=== PATIENT | male | born 1930 | race Caucasian/White ===

== ENCOUNTER 2017-06-05 15:58 | Inpatient (IN) | payer MEDICARE, OTHER ==
[2017-06-05 15:58] VITALS: BMI 30.4
[2017-06-05] MEDS ORDERED: Sodium Chloride 0.9% 1,000 ML IV STA ×3 (16:12→18:33)
--- NOTE | 2017-06-05 16:19 | ED PDOC ---
HPI: Trauma/Fall - HPI Time Seen by Provider: 06/05/17 16:04 Chief Complaint (Nursing): Weakness/Neurological Deficit Chief Complaint (Provider): Right shoulder and rib pain from fall History Per: Patient, EMS, Family History/Exam Limitations: no limitations Onset/Duration Of Symptoms: Days (3-4) Additional Complaint(s): Patient is an 87 y/o male with a past medical history of hypertension, stroke, and hypercholesterolemia brought to the emergency department by EMS for right shoulder and right rib pain associated with a fall. Family members found him on the floor unable to get up for 3-4 days (he was last seen on Tuesday night). Patient reports that he fell when he tried to get water and his foot slipped off the mattress. Denies loss of consciousness, headache, or other complaints. PCP Dr. Tyler Carranza Past Medical History Reviewed: Historical Data, Nursing Documentation, Vital Signs Vital Signs: Last Vital Signs Temp 98.0 F 06/05/17 16:00 Pulse 87 06/05/17 16:00 Resp 18 06/05/17 16:00 BP 116/75 06/05/17 16:00 Pulse Ox 99 06/05/17 16:34 - Medical History PMH: CVA, TIA (1 month ago) Denies: Anxiety, Arthritis, CHF, COPD, HIV, HTN, Hypercholesterolemia, Hypothyroidism, Chronic Kidney Disease, Rheumatoid Arthritis - Family History Family History: States: Unknown Family Hx - Living Arrangements Living Arrangements: Alone - Home Medications Home Medications: Ambulatory Orders Medication Instructions Recorded Multivitamin/Iron/Folic Acid 1 tab PO DAILY 12/02/14 [Centrum Complete Multivit Tab] Aspirin [Ecotrin] 81 mg PO DAILY 12/04/14 Atorvastatin [Lipitor] 20 mg PO HS #0 tab 10/11/15 Clopidogrel [Plavix] 75 mg PO DAILY 06/05/17 amLODIPine [Norvasc] 5 mg PO DAILY 06/05/17 - Allergies Allergies/Adverse Reactions: Allergies Allergy/AdvReac Type Severity Reaction Status Date / Time No Known Allergies Allergy Verified 10/10/15 18:03 Review of Systems ROS Statement: Except As Marked, All Systems Reviewed And Found Negative Musculoskeletal: Positive for: Shoulder Pain (right), Other (rib pain) Neurological: Negative for: Headache, Other (loss of consciousness) Physical Exam - Reviewed Nursing Documentation Reviewed: Yes Vital Signs Reviewed: Yes - Physical Exam Appears: Positive for: Non-toxic, No Acute Distress Head Exam: Positive for: ATRAUMATIC, NORMOCEPHALIC Skin: Positive for: Normal Color, Warm, Dry Eye Exam: Positive for: Normal appearance, EOMI, PERRL ENT: Positive for: Other (Dry mucous membranes) Neck: Positive for: Normal (and nontender), Painless ROM, Supple Cardiovascular/Chest: Positive for: Regular Rate, Rhythm. Negative for: Murmur Respiratory: Positive for: Normal Breath Sounds. Negative for: Accessory Muscle Use, Respiratory Distress Gastrointestinal/Abdominal: Positive for: Soft, Hernia (Reducible ventral hernia ). Negative for: Tenderness Back: Positive for: Other (Midscapular region bilateral ecchymosis). Negative for: Vertebral Tenderness Extremity: Positive for: Normal ROM (right shoulder with no deformities or shortening), Tenderness (right shoulder), Other (bilateral shoulder and elbow eccymosis) Neurologic/Psych: Positive for: Alert, Oriented (x3). Negative for: Motor/ Sensory Deficits Comments: Right sided hip tenderness - Laboratory Results Result Diagrams: 06/05/17 16:40 06/05/17 16:40 - ECG O2 Sat by Pulse Oximetry: 99 (RA) Pulse Ox Interpretation: Normal - Progress Re-evaluation Time: 18:33 Condition: Unchanged - Critical Care Total Time (In Min): 30 Medical Decision Making Medical Decision Making: Time: 16:10 Initial plan: Labs CT Head w/o contrast EKG ED Urine Dipstick X-ray Chest X-ray Shoulders X-ray Elbows Normal Saline 1 L IV Blood Culture Urine Culture Reevaluation Scribe Attestation: Documented by Danni Wallace, acting as a scribe for Gilmar John MD. Provider Scribe Attestation: All medical record entries made by the Scribe were at my direction and personally dictated by me. I have reviewed the chart and agree that the record accurately reflects my personal performance of the history, physical exam, medical decision making, and the department course for this patient. I have also personally directed, reviewed, and agree with the discharge instructions and disposition. Disposition - Clinical Impression Clinical Impression: Syncope, Rhabdomyolysis, Dehydration - Patient ED Disposition Is Patient to be Admitted: Yes - Disposition Disposition Time: 18:34 Condition: FAIR Forms: [employer] ([employer]) - Pt Status Changed To: Hospital Disposition Of: Inpatient - Admit Certification Admit to Inpatient:: After my assessment, the patient will require hospitalization for at least two midnights. This is because of the severity of symptoms shown, intensity of services needed, and/or the medical risk in this patient being treated as an outpatient. - POA Present On Arrival: None
[2017-06-05 16:37] LABS: VENOUS BLOOD GAS BASE EXCESS -5.2 mmol/L (0.0-2.0); VENOUS BLOOD GAS PCO2 46 mmHg (40-60); VENOUS BLOOD PH 7.28 (7.32-7.43)
[2017-06-05 16:50] LABS: BASO % 0.6 % (0.0-2.0); EOS % 0.3 % (0.0-4.0); HEMATOCRIT 53.5 % (35.0-51.0); LYMPH # 0.6 K/uL (1.0-4.3); LYMPH % 7.5 % (20.0-40.0); MEAN CELL VOLUME 93.2 fl (80.0-94.0); MEAN CORPUSCULAR HEMOGLOBIN 30.9 pg (27.0-31.0); MEAN CORPUSCULAR HGB CONC 33.2 g/dL (33.0-37.0); MEAN PLATELET VOLUME 10.5 fl (7.2-11.7); MONO # 0.7 K/uL (0.0-0.8); MONO % 8.4 % (0.0-10.0); NEUT # 7.2 K/uL (1.8-7.0); NEUT % 83.2 % (50.0-75.0); NRBC % 0.5 % (0.0-0.0); PLATELET COUNT 187 K/uL (130-400); RED CELL DISTRIBUTION WIDTH 15.1 % (11.5-14.5); WHITE BLOOD COUNT 8.6 K/uL (4.8-10.8)
[2017-06-05 17:00] LABS: ALB/GLOB RATIO 0.9 (1.0-2.1); BILIRUBIN,TOTAL 2.7 mg/dl (0.2-1.3); CALCIUM 9.9 mg/dL (8.4-10.2); POTASSIUM 5.2 MMOL/L (3.6-5.0); TOTAL PROTEIN 9.4 G/DL (6.3-8.2)
[2017-06-05 17:27] LABS: NEUTROPHIL 84 % (42-75); TOTAL CELLS COUNTED 100
--- NOTE | 2017-06-05 18:45 | CT ---
PROCEDURE: CT HEAD WITHOUT CONTRAST. HISTORY: r/o bleed COMPARISON: Comparison made with prior CT scan of the brain dated 10/11/2015. TECHNIQUE: Axial computed tomography images were obtained through the head/brain without intravenous contrast. Radiation dose: Total exam DLP = 2411.39 mGy-cm. This CT exam was performed using one or more of the following dose reduction techniques: Automated exposure control, adjustment of the mA and/or kV according to patient size, and/or use of iterative reconstruction technique. FINDINGS: HEMORRHAGE: No acute parenchymal, subarachnoid or extra-axial hemorrhage. BRAIN: Re- demonstrated is old left posterior temporoparietal infarct of. No evidence of parenchymal or extra-axial mass or collection. Tiny chronic lacunar-type infarct right caudate head, anterior limb right internal capsule and probably left subinsular region. . Moderate chronic periventricular white matter ischemic changes are again seen extending peripherally into the deep and subcortical white matter both cerebral hemispheres. Moderate -significant generalized volume loss. Mild calcified atherosclerotic plaque changes again seen along the carotid siphons M left vertebral artery. . VENTRICLES: No obstructive hydrocephalus. . Incidental note made of cavum velum interpositum. CALVARIUM: Calvarium is intact. PARANASAL SINUSES: Unremarkable as visualized. No significant inflammatory changes. MASTOID AIR CELLS: Unremarkable as visualized. No inflammatory changes. OTHER FINDINGS: None. IMPRESSION: No acute intracranial hemorrhage. Chronic left posterior temporal parietal infarct. Tiny chronic lacunar-type infarct right caudate head, anterior limb right internal capsule and probably left subinsular region. . Moderate chronic white matter ischemic changes.
--- NOTE | 2017-06-05 18:52 | RAD ---
PROCEDURE: Bilateral shoulders dated 06/05/2017. HISTORY: trauma COMPARISON: No prior study available for comparison TECHNIQUE: AP views of the right and left shoulders performed. Comparison made with radiographs of the chest dated 10/10/2015 which imaged the right shoulder and partially imaged the left shoulder. FINDINGS: No evidence of acute displaced fracture nor dislocation. The osseous structures appear intact. Degenerative changes both acromioclavicular joints right greater than left. There also appears to be some minor degenerative changes of the right and to a lesser degree left glenohumeral joints. Note again made of a small irregular rounded radiopaque density overlying the left medial clavicle. IMPRESSION: DJD as above. No evidence of acute displaced fracture nor dislocation.
--- NOTE | 2017-06-05 19:00 | RAD ---
HISTORY: cough COMPARISON: Comparison made with chest radiograph 10/10/2015 FINDINGS: LUNGS: Mild left basilar atelectasis scarring and/or infiltrate. Small left effusion cannot be excluded. Persistent elevation right hemidiaphragm possibly due to eventration. PLEURA: As above. No pneumothorax apparent. CARDIOVASCULAR: Heart remains enlarged. Aorta is slightly ectatic and uncoiled. OSSEOUS STRUCTURES: No significant abnormalities. VISUALIZED UPPER ABDOMEN: Normal. OTHER FINDINGS: Re- demonstrated is small rounded metallic density which overlies the medial clavicle unchanged from prior study IMPRESSION: Left lower lobe atelectasis scarring and/or infiltrate. Small left effusion not excluded. Persistent elevation right hemidiaphragm possibly due to eventration. Cardiomegaly. Re- demonstrated is a small rounded metallic like density overlying the medial left clavicle.
--- NOTE | 2017-06-05 20:30 | CT ---
EXAM: CT Abdomen and Pelvis Without Intravenous Contrast EXAM DATE/TIME: 06/05/2017 6:47 PM CLINICAL HISTORY: 87 years old, male; Injury or trauma; Fall; Initial encounter; Laceration; Without foreign body; Generalized, abdominal; Injury date: 4 days ago; Injury details: Rt hip SX. HX of CVA. Pt was found lying on the floor 4 days; Prior surgery; Surgery date: 6+ months; Additional info: R/O kidney stone TECHNIQUE: Axial computed tomography images of the abdomen and pelvis without intravenous contrast. All CT scans at this facility use one or more dose reduction techniques, viz.: automated exposure control; ma/kV adjustment per patient size (including targeted exams where dose is matched to indication; i.e. head); or iterative reconstruction technique. Coronal and sagittal reformatted images were created and reviewed. COMPARISON: No relevant prior studies available. FINDINGS: LOWER THORAX: Masslike density in the left lung base posteriorly, oval shaped, measuring 5.8 x 2.7 cm maximally. This has features suggestive of round atelectasis. It is subpleural in location, and there is nearby pleural thickening. There is distortion and convergence of nearby vessels into the lesion. No pneumothorax is seen. ABDOMEN: LIVER: No evidence of liver laceration, allowing for unenhanced technique. GALLBLADDER AND BILE DUCTS: Cholelithiasis. Numerous tiny gallstones are seen. Mild gallbladder dilatation. Subtle infiltration of the fat adjacent to the gallbladder, and question subtle pericholecystic inflammation. No evidence of pericholecystic fluid. PANCREAS: No CT evidence of acute pancreatitis. SPLEEN: No evidence of splenic laceration, allowing for unenhanced technique. ADRENALS: No evidence of adrenal hemorrhage/hematoma. KIDNEYS AND URETERS: Low density lesion in the left kidney, measuring 2.7 cm, most likely a cyst. No evidence of perinephric hemorrhage. No renal stones, hydronephrosis, or hydroureter seen. STOMACH AND BOWEL: Rectum is stool filled and mildly dilated, suggestive of fecal retention/constipation. Extensive colonic diverticulosis, without evidence of acute diverticulitis. Evidence of prior right hemicolectomy. There appears to be an enterocolic anastomosis in the right anterior abdomen. Stomach is mildly dilated. Otherwise, no significant abnormality of the bowel is identified. No evidence of large mesenteric hematoma. No evidence of bowel perforation. APPENDIX: Surgically removed. PELVIS: BLADDER: No acute abnormality of the bladder identified. REPRODUCTIVE: No acute abnormality of the reproductive organs is seen. ABDOMEN and PELVIS: INTRAPERITONEAL SPACE: No evidence of free intraperitoneal air or fluid. RETROPERITONEAL SPACE: No evidence of retroperitoneal hemorrhage. BONES/JOINTS: Arthroplasty device in the right hip.No acute fractures are seen. SOFT TISSUES: Right lateral abdominal wall hernia, containing multiple small bowel loops. No evidence of associated bowel obstruction. No CT findings to suggest hernia incarceration. No evidence of soft tissue hematoma. VASCULATURE: Abdominal aorta and common iliac arteries are ectatic, with the aorta measuring up to 2.8 cm in diameter, without aneurysmal dilatation. Extensive atherosclerotic calcification. No evidence of periaortic hemorrhage. LYMPH NODES: No evidence of diffuse lymphadenopathy. IMPRESSION: - No evidence of significant acute traumatic injury on this unenhanced exam. - Gallstones, mild gallbladder dilatation, and question subtle pericholecystic inflammation. If there is any clinical concern for early acute cholecystitis, consider right upper quadrant ultrasound for further evaluation. - 5.8 cm masslike density in the left lung base. This has features suggestive of round atelectasis. Recommend either short term CT chest followup or further workup, such as with PET/CT, to definitely rule out a mass. - Right lateral abdominal wall hernia, containing multiple small bowel loops. No associated bowel obstruction. - See above for remaining findings.
[2017-06-05] MEDS: Sodium Chloride 0.9% 1,000 ML IV SCH (21:56)
[2017-06-06] MEDS: Sodium Chloride 0.9% 1,000 ML IV SCH ×2 (05:02→05:03)
[2017-06-06 08:23] LABS: BASO % 0.6 % (0.0-2.0); EOS # 0.1 K/uL (0.0-0.7); EOS % 1.5 % (0.0-4.0); HEMATOCRIT 47.1 % (35.0-51.0); LYMPH # 0.7 K/uL (1.0-4.3); LYMPH % 13.1 % (20.0-40.0); MEAN CELL VOLUME 94.7 fl (80.0-94.0); MEAN CORPUSCULAR HEMOGLOBIN 30.5 pg (27.0-31.0); MEAN CORPUSCULAR HGB CONC 32.2 g/dL (33.0-37.0); MEAN PLATELET VOLUME 10.3 fl (7.2-11.7); MONO # 0.6 K/uL (0.0-0.8); MONO % 10.8 % (0.0-10.0); NEUT # 4.2 K/uL (1.8-7.0); NRBC % 0.1 % (0.0-0.0); RED CELL DISTRIBUTION WIDTH 15.4 % (11.5-14.5); WHITE BLOOD COUNT 5.6 K/uL (4.8-10.8)
[2017-06-06 08:51] LABS: ALB/GLOB RATIO 0.8 (1.0-2.1); BILIRUBIN,TOTAL 2.2 mg/dl (0.2-1.3); CALCIUM 8.2 mg/dL (8.4-10.2); MAGNESIUM 2.6 MG/DL (1.6-2.3); PHOSPHOROUS 3.5 mg/dl (2.5-4.5); POTASSIUM 4.5 MMOL/L (3.6-5.0); TOTAL PROTEIN 7.3 G/DL (6.3-8.2)
[2017-06-06] MEDS: Multivitamin With Minerals Tab PO SCH (09:08)
--- NOTE | 2017-06-06 10:55 | CP.PCM.HP ---
History of Present Illness - History of Present Illness History of Present Illness: pt admitted for dehydration, rhabdo after falling to floor and not being able to get up x 2-3 days. cpk, bun, cr, na, k all elevated this am came down w/ ivf denies cp, dyspnea, is a/o to baselinea tpresent. all imaging reviewed Present on Admission - Present on Admission Any Indicators Present on Admission: No Review of Systems - Constitutional Constitutional: As Per HPI - Neurological Neurological: As Per HPI Past Patient History - Past Medical History & Family History Past Medical History?: Yes - Past Social History Smoking Status: Never Smoked - CARDIAC Hx Congestive Heart Failure: No Hx Hypercholesterolemia: Yes Hx Hypertension: Yes - PULMONARY Hx Chronic Obstructive Pulmonary Disease (COPD): No - NEUROLOGICAL HX Cerebrovascular Accident: Yes Hx Transient Ischemic Attacks (TIA): Yes (1 month ago) - HEENT Hx HEENT Problems: No - RENAL Hx Chronic Kidney Disease: No - ENDOCRINE/METABOLIC Hx Hypothyroidism: No - HEMATOLOGICAL/ONCOLOGICAL Hx Human Immunodeficiency Virus (HIV): No - INTEGUMENTARY Hx Dermatological Problems: No - MUSCULOSKELETAL/RHEUMATOLOGICAL Hx Falls: Yes - GASTROINTESTINAL Hx Gastrointestinal Disorders: Yes Other/Comment: Pt had abdominal surgery in the past that resulted in ventral hernia (?) per family - GENITOURINARY/GYNECOLOGICAL Hx Genitourinary Disorders: Yes - PSYCHIATRIC Hx Substance Use: No - SURGICAL HISTORY Hx Surgeries: Yes Hx Joint Replacement: Yes (R THR 2010) Other/Comment: Abdominal surgery. Ventral Hernia repair 1.5 years ago in [employer]. prostate ca removal - ANESTHESIA Hx Anesthesia: Yes Hx Anesthesia Reactions: No Hx Malignant Hyperthermia: No Meds Allergies/Adverse Reactions: Allergies Allergy/AdvReac Type Severity Reaction Status Date / Time No Known Allergies Allergy Verified 10/10/15 18:03 Physical Exam - Constitutional Appears: Well, Non-toxic, No Acute Distress - Head Exam Head Exam: ATRAUMATIC, NORMAL INSPECTION, NORMOCEPHALIC - Eye Exam Eye Exam: EOMI, Normal appearance, PERRL Pupil Exam: NORMAL ACCOMODATION, PERRL - ENT Exam ENT Exam: Mucous Membranes Moist, Normal Exam - Neck Exam Neck exam: Positive for: Normal Inspection - Respiratory Exam Respiratory Exam: Clear to Auscultation Bilateral, NORMAL BREATHING PATTERN - Cardiovascular Exam Cardiovascular Exam: REGULAR RHYTHM, RRR, +S1, +S2 - GI/Abdominal Exam GI & Abdominal Exam: Normal Bowel Sounds, Soft. absent: Tenderness - Extremities Exam Extremities exam: Positive for: full ROM, normal capillary refill, normal inspection, pedal pulses present - Back Exam Back exam: NORMAL INSPECTION - Neurological Exam Neurological exam: Abnormal Gait, Alert, CN II-XII Intact, Oriented x3, Reflexes Normal - Psychiatric Exam Psychiatric exam: Normal Affect, Normal Mood - Skin Skin Exam: Dry, Intact, Normal Color, Warm Results - Vital Signs Recent Vital Signs: Last Vital Signs Temp 96.9 F L 06/06/17 08:58 Pulse 62 06/06/17 09:08 Resp 20 06/06/17 08:58 BP 129/77 06/06/17 09:08 Pulse Ox 98 06/06/17 08:58 - Labs Result Diagrams: 06/06/17 07:50 06/06/17 07:50 Labs: Laboratory Results - last 24 hr 06/06/17 06/06/17 07:50 07:50 WBC 5.6 RBC 4.98 Hgb 15.2 D Hct 47.1 MCV 94.7 H MCH 30.5 MCHC 32.2 L RDW 15.4 H Plt Count 160 MPV 10.3 Neut % (Auto) 74.0 Lymph % (Auto) 13.1 L Ford % (Auto) 10.8 H Eos % (Auto) 1.5 Baso % (Auto) 0.6 Neut # 4.2 Lymph # 0.7 L Ford # 0.6 Eos # 0.1 Baso # 0.0 Sodium 147 Potassium 4.5 Chloride 122 H Carbon Dioxide 14 L Anion Gap 16 BUN 96 H Creatinine 1.5 Est GFR ( Amer) 54 Est GFR (Non-Af Amer) 44 Random Glucose 103 Calcium 8.2 L Phosphorus 3.5 Magnesium 2.6 H Total Bilirubin 2.2 H AST 82 H D ALT 69 Alkaline Phosphatase 48 Total Creatine Kinase 658 H Total Protein 7.3 Albumin 3.2 L D Globulin 4.2 H Albumin/Globulin Ratio 0.8 L Assessment & Plan (1) Dehydration Assessment and Plan: ivf nephro bun/cr improving trend numbers Status: Acute (2) Rhabdomyolysis Assessment and Plan: trend cpk nephro ivf Status: Acute (3) Syncope Assessment and Plan: cardio tele monitoring no further episodes of same. likely nonsyncope but mechanical fall Status: Acute (4) DVT prophylaxis Assessment and Plan: scd and ae hose ambulation Status: Acute (5) Fall Assessment and Plan: pt/ot patricio Status: Acute Decision To Admit - Pt Status Changed To: Hospital Disposition Of: Inpatient - Admit Certification Admit to Inpatient:: After my assessment, the patient will require hospitalization for at least two midnights. This is because of the severity of symptoms shown, intensity of services needed, and/or the medical risk in this patient being treated as an outpatient. - . Bed Request Type: Telemetry Admitting Physician: Tyler Rodgers
--- NOTE | 2017-06-06 11:44 | CP.PCM.CON ---
History of Present Illness - History of Present Illness History of Present Illness: Initial Nephrology Consultation: Assessment: critical Acute Kidney Injury (N17.9) likely due to severe dehydration with pre-renal state Hypernatremia Fall at home, HTN, Hyperlipidemia, TIA Rhabdomyolysis HAGMA now NAGMA combined respi and metabolic acidosis Plan No acute need for renal replacement therapy at this time. Hypertension control with meds as ordered. Patient not on ACEI/ARB due to ÁLVARO Monitor Input/Output, daily weights and renal function with basic metabolic panel will change IVF to D5W with 75 meq bicarb @ 100 ml/hr Dose meds/antibiotics for reduced GFR. Avoid fleets enema/magnesium based laxatives. Avoid nephrotoxins/NSAIDs/ iodinated contrast (unless needed emergently) Glycemic control Further work up/management as per primary team Thanks for allowing me to participate in care of your patient. Will follow patient with you. Please call if any Qs. d/w team Dr Jonny Brown Office: [phone] Chief Complaint; Fall HPI: Pt is a 87 y/o M with hx of hypertension, TIA and hyperlipidemia who had a fall episode of home 3-4 days ago. pt unable to seek help and wasn't able to eat or drink for those days. he was brought to ER for initial eval and found to have severe dehydration with ÁLVARO hence renal consulted he is c/o fall 3-4 days ago and Rt shoulder pain Denies chest pain, palpitation, shortness of breath, leg swelling Denies blood or bubbles in urine Denies OTC/herbal meds or NSAIDs No recent iodinated contrast exposure.. ROS: staff helped in panamanian interpretation Constitutional Symptoms: Denies fever. No chills. No Recent Weight Changes Eyes: denies change in vision, denies watery eyes, denies double vision Ears/Nose/Mouth/Throat: Denies Abnormal Taste. No Bad breath no Bad Taste. Cardiovascular: No chest pain. There is no shortness of breath. No palpitations. Pulmonary: No shortness of breath no cough. Gastrointestinal: denies abdominal pain No nausea. No vomiting. Denies change in bowel habits. Denies Bleeding Genitourinary: No Change in force of strain when urinating. No increase in urinary frequency. No pain while urinating. Denies blood in urine. Neurological: Denies headaches. c/o dizziness.had loss of balance. Denies weakness, denies tingling/numbness Dermatological: No Rash or Bruising or ulcers. Psychiatric: Denies Anxiety. No depression. Denies hallucinations. Rheumatological: c/o joint pain. Denies Joint swelling Endocrine: Denies tiredness/Fatigue denies Heat/Cold Intolerance. All other negative Physical Examination: General Appearance: Comfortable, in no acute respiratory distress, co-operative . overall ill appearing Vitals reviewed and noted as below Head; Atraumatic, normocephalic ENT: no ulcers no thrush. Tongue is midline. Oropharynx: no rash or ulcers. dry oral mucosa/tongue EYES: Pupils are equal, round and reactive to light accommodation. Eye muscles and extraocular movement intact. Sclera is anicteric. Neck; supple no lymphadenopathy, no thyromegaly or bruit Lungs: Normal respiratory rate/effort. Breath sounds bilateral equal and clear Heart: Normal rate. s1s2 normal. No rub or gallop. Extremities: no edema. No varicose veins Neurological: Patient is alert, awake and oriented to person, place and time. No focal deficit. Strength bilateral appropriate and equal Skin: Warm and dry. Normal turgor. No rash. Palpitation: Normal elasticity for age Abdomen: Abdomen is soft. Bowel sounds +. There is no abdominal tenderness, no guarding/rigidity no organomegaly Psych: normal insight and normal affect/mood MSK: no joint tenderness or swelling. Digits and nails normal, no deformity : kidney or bladder not palpable Labs/imaging/EKG reviewed. Past medical history, past surgical history, family history, social history, allergy reviewed and noted as below Family hx: no hx of CKD. Rest non-contributory Past Patient History - Past Medical History & Family History Past Medical History?: Yes - Past Social History Smoking Status: Never Smoked - CARDIAC Hx Congestive Heart Failure: No Hx Hypercholesterolemia: Yes Hx Hypertension: Yes - PULMONARY Hx Chronic Obstructive Pulmonary Disease (COPD): No - NEUROLOGICAL HX Cerebrovascular Accident: Yes Hx Transient Ischemic Attacks (TIA): Yes (1 month ago) - HEENT Hx HEENT Problems: No - RENAL Hx Chronic Kidney Disease: No - ENDOCRINE/METABOLIC Hx Hypothyroidism: No - HEMATOLOGICAL/ONCOLOGICAL Hx Human Immunodeficiency Virus (HIV): No - INTEGUMENTARY Hx Dermatological Problems: No - MUSCULOSKELETAL/RHEUMATOLOGICAL Hx Falls: Yes - GASTROINTESTINAL Hx Gastrointestinal Disorders: Yes Other/Comment: Pt had abdominal surgery in the past that resulted in ventral hernia (?) per family - GENITOURINARY/GYNECOLOGICAL Hx Genitourinary Disorders: Yes - PSYCHIATRIC Hx Substance Use: No - SURGICAL HISTORY Hx Surgeries: Yes Hx Joint Replacement: Yes (R THR 2010) Other/Comment: Abdominal surgery. Ventral Hernia repair 1.5 years ago in [place]. prostate ca removal - ANESTHESIA Hx Anesthesia: Yes Hx Anesthesia Reactions: No Hx Malignant Hyperthermia: No Meds Allergies/Adverse Reactions: Allergies Allergy/AdvReac Type Severity Reaction Status Date / Time No Known Allergies Allergy Verified 10/10/15 18:03 - Medications Medications: Current Medications Acetaminophen (Tylenol 325mg Tab) 650 mg PO Q6 PRN PRN Reason: Pain, Mild (1-3) Amlodipine Besylate (Norvasc) 5 mg PO DAILY [facility] Last Admin: 06/06/17 09:08 Dose: 5 mg Aspirin (Ecotrin) 81 mg PO DAILY [facility] Last Admin: 06/06/17 09:08 Dose: 81 mg Atorvastatin Calcium (Lipitor) 20 mg PO HS [facility] Last Admin: 06/05/17 22:00 Dose: Not Given Clopidogrel Bisulfate (Plavix) 75 mg PO DAILY [facility] Last Admin: 06/06/17 09:08 Dose: 75 mg Enoxaparin Sodium (Lovenox) 40 mg SC DAILY [facility] PRN Reason: Protocol Sodium Bicarbonate 75 meq/ (Dextrose) 1,075 mls @ 100 mls/hr IV .[id number] [facility] Stop: 06/07/17 10:42 Multivitamins/Minerals (Therapeutic-M Tab) 1 tab PO DAILY [facility] Last Admin: 06/06/17 09:08 Dose: 1 tab Results - Vital Signs Recent Vital Signs: Last Vital Signs Temp 96.9 F L 06/06/17 08:58 Pulse 62 06/06/17 09:08 Resp 20 06/06/17 08:58 BP 129/77 06/06/17 09:08 Pulse Ox 98 06/06/17 08:58 - Labs Result Diagrams: 06/06/17 07:50 06/06/17 07:50 Labs: Laboratory Results - last 24 hr 06/06/17 06/06/17 07:50 07:50 WBC 5.6 RBC 4.98 Hgb 15.2 D Hct 47.1 MCV 94.7 H MCH 30.5 MCHC 32.2 L RDW 15.4 H Plt Count 160 MPV 10.3 Neut % (Auto) 74.0 Lymph % (Auto) 13.1 L [place] % (Auto) 10.8 H Eos % (Auto) 1.5 Baso % (Auto) 0.6 Neut # 4.2 Lymph # 0.7 L [place] # 0.6 Eos # 0.1 Baso # 0.0 Sodium 147 Potassium 4.5 Chloride 122 H Carbon Dioxide 14 L Anion Gap 16 BUN 96 H Creatinine 1.5 Est GFR ( Amer) 54 Est GFR (Non-Af Amer) 44 Random Glucose 103 Calcium 8.2 L Phosphorus 3.5 Magnesium 2.6 H Total Bilirubin 2.2 H AST 82 H D ALT 69 Alkaline Phosphatase 48 Total Creatine Kinase 658 H Total Protein 7.3 Albumin 3.2 L D Globulin 4.2 H Albumin/Globulin Ratio 0.8 L
[2017-06-06 11:55] LABS: RBC URINE < 1 /hpf (0-3); URINE BACTERIA MOD (<OCC); URINE BILIRUBIN NEGATIVE (NEGATIVE); URINE BLOOD SMALL (NEGATIVE); URINE COLOR YELLOW (YELLOW); URINE GLUCOSE (UA) NEG (Normal); URINE KETONE NEGATIVE (NEGATIVE); URINE LEUKOCYTE ESTERASE NEG Leu/uL (Negative); URINE PROTEIN NEGATIVE (NEGATIVE); URINE UROBILINOGEN 0.2-1.0 mg/dL (0.2-1.0); WBC URINE 1 /hpf (0-5)
[2017-06-06] MEDS: Sodium Bicarbonate 8.4% 75 MEQ in Dextrose 5% In Water 1,000 ML IV SCH ×2 (12:22→23:47)
--- NOTE | 2017-06-06 13:36 | CP.PCM.CON ---
History of Present Illness - History of Present Illness History of Present Illness: I was asked to evaluate patient by Dr. Rodgers, and Tyler Carranza APN. Patient is a 87 year old male with PMH HTN who presents for evlauation. The patient was found on the floor of his home by a family memeber, and it was estimated that he was down for abot 2 days. He was found to be in atrial flutter. The patient denies previous myocardial infarction. He denies chest pain or syncope. Review of Systems - Constitutional Constitutional: absent: As Per HPI, Anorexia, Chills, Daytime Sleepiness, Excessive Sweating, Fatigue, Fever, Frequent Falls, Headache, Increased Appetite , Lethargy, Malaise, Night Sweats, Snoring, Sleep Apnea, Weight Gain, Weight Loss, Weakness, Other - EENT Eyes: absent: As Per HPI, Blind Spots, Blurred Vision, Change in Vision, Decreased Night Vision, Diplopia, Discharge, Dry Eye, Exophthalmos, Floaters, Irritation, Itchy Eyes, Loss of Peripheral Vision, Pain, Photophobia, Requires Corrective Lenses, Sees Flashes, Spots in Vision, Tunnel Vision, Other Visual Disturbances, Loss of Vision, Other Ears: absent: As Per HPI, Decreased Hearing, Ear Discharge, Ear Pain, Tinnitus, Abnormal Hearing, Disequilibrium, Dizziness, Other Nose/Mouth/Throat: absent: As Per HPI, Epistaxis, Nasal Congestion, Nasal Discharge, Nasal Obstruction, Nasal Trauma, Nose Pain, Post Nasal Drip, Sinus Pain, Sinus Pressure, Bleeding Gums, Change in Voice, Dental Pain, Dry Mouth, Dysphagia, Halitosis, Hoarsness, Lip Swelling, Mouth Lesions, Mouth Pain, Odynophagia, Sore Throat, Throat Swelling, Tongue Swelling, Facial Pain, Neck Pain, Neck Mass, Other - Cardiovascular Cardiovascular: absent: As Per HPI, Acrocyanosis, Chest Pain, Chest Pain at Rest , Chest Pain with Activity, Claudication, Diaphoresis, Dyspnea, Dyspnea on Exertion, Edema, Irregular Heart Rhythm, Pain Radiating to Arm/Neck/Jaw, Leg Edema, Leg Ulcers, Lightheadedness, Orthopnea, Palpitations, Paroxysmal Nocturnal Dyspnea, Pedal Edema, Radiating Pain, Rapid Heart Rate, Slow Heart Rate, Syncope, Other - Respiratory Respiratory: absent: As Per HPI, Cough, Dyspnea, Hemoptysis, Dyspnea on Exertion , Wheezing, Snoring, Stridor, Pain on Inspiration, Chest Congestion, Excessive Mucous Production, Change in Mucous Color, Pain with Coughing, Other - Gastrointestinal Gastrointestinal: absent: As Per HPI, Abdominal Pain, Belching, Bloating, Change in Bowel Habits, Change in Stool Character, Coffee Ground Emesis, Constipation, Cramping, Diarrhea, Dyspepsia, Dysphagia, Early Satiety, Excessive Flatus, Fecal Incontinence, Heartburn, Hematemesis, Hematochezia, Loose Stools, Melena, Nausea, Odynophagia, Temesmus, Vomiting, Other - Musculoskeletal Musculoskeletal: absent: As Per HPI, Abnormal Gait, Arthralgias, Atrophy, Back Pain, Deformity, Joint Swelling, Limited Range of Motion, Loss of Height, Muscle Cramps, Muscle Weakness, Myalgias, Neck Pain, Numbness, Radiating Pain into Limb, Stiffness, Tingling, Other - Integumentary Integumentary: absent: As Per HPI, Acne, Alopecia, Bleeding Lesions, Change in Hair, Change in Nails, Change in Pigmentation, Changing Lesions, Dry Skin, Erythema, Furuncle, Hirsutism, Lesions, New Lesions, Non-Healing Lesions, Photosensitivity, Pruritus, Rash, Skin Pain, Skin Ulcer, Sores, Striae, Swelling , Unusual Bruising, Wounds, Jaundice, Other - Neurological Neurological: absent: As Per HPI, Abnormal Gait, Abnormal Hearing, Abnormal Movements, Abnormal Speech, Behavioral Changes, Burning Sensations, Confusion, Convulsions, Disequilibrium, Dizziness, Numbness, Focal Weakness, Frequent Falls , Headaches, Lack of Coordination, Loss of Vision, Memory Loss, Paresthesias, Radicular Pain, Restless Legs, Sensory Deficit, Syncope, Tingling, Tremor, Vertigo, Weakness, Other Visual Disturbances, Other - Psychiatric Psychiatric: absent: As Per HPI, Abnormal Sleep Pattern, Anhedonia, Anxiety, Auditory Hallucinations, Behavioral Changes, Change in Appetite, Change in Libido, Confusion, Depression, Difficulty Concentrating, Hallucinations, Homicidal Ideation, Hopelessness, Irritability, Memory Loss, Mood Swings, Panic Attacks, Paranoia, Suicidal Ideation, Visual Hallucinations, Tactile Hallucinations, Other - Endocrine Endocrine: absent: As Per HPI, Change in Body Appearance, Change in Libido, Cold Intolorance, Deepening of Voice, Excessive Sweating, Fatigue, Flushing, Heat Intolorance, Increase in Ring/Shoe/Hat Size, Palpitations, Polydipsia, Polyphagia, Polyuria, Other - Hematologic/Lymphatic Hematologic: absent: As Per HPI, Easy Bleeding, Easy Bruising, Lymphadenopathy, Other Past Patient History - Past Medical History & Family History Past Medical History?: Yes - Past Social History Smoking Status: Never Smoked - CARDIAC Hx Congestive Heart Failure: No Hx Hypercholesterolemia: Yes Hx Hypertension: Yes - PULMONARY Hx Chronic Obstructive Pulmonary Disease (COPD): No - NEUROLOGICAL HX Cerebrovascular Accident: Yes Hx Transient Ischemic Attacks (TIA): Yes (1 month ago) - HEENT Hx HEENT Problems: No - RENAL Hx Chronic Kidney Disease: No - ENDOCRINE/METABOLIC Hx Hypothyroidism: No - HEMATOLOGICAL/ONCOLOGICAL Hx Human Immunodeficiency Virus (HIV): No - INTEGUMENTARY Hx Dermatological Problems: No - MUSCULOSKELETAL/RHEUMATOLOGICAL Hx Falls: Yes - GASTROINTESTINAL Hx Gastrointestinal Disorders: Yes Other/Comment: Pt had abdominal surgery in the past that resulted in ventral hernia (?) per family - GENITOURINARY/GYNECOLOGICAL Hx Genitourinary Disorders: Yes - PSYCHIATRIC Hx Substance Use: No - SURGICAL HISTORY Hx Surgeries: Yes Hx Joint Replacement: Yes (R THR 2010) Other/Comment: Abdominal surgery. Ventral Hernia repair 1.5 years ago in [place]. prostate ca removal - ANESTHESIA Hx Anesthesia: Yes Hx Anesthesia Reactions: No Hx Malignant Hyperthermia: No Meds Allergies/Adverse Reactions: Allergies Allergy/AdvReac Type Severity Reaction Status Date / Time No Known Allergies Allergy Verified 10/10/15 18:03 - Medications Medications: Current Medications Acetaminophen (Tylenol 325mg Tab) 650 mg PO Q6 PRN PRN Reason: Pain, Mild (1-3) Amlodipine Besylate (Norvasc) 5 mg PO DAILY [facility] Last Admin: 06/06/17 09:08 Dose: 5 mg Aspirin (Ecotrin) 81 mg PO DAILY [facility] Last Admin: 06/06/17 09:08 Dose: 81 mg Atorvastatin Calcium (Lipitor) 20 mg PO HS [facility] Last Admin: 06/05/17 22:00 Dose: Not Given Clopidogrel Bisulfate (Plavix) 75 mg PO DAILY [facility] Last Admin: 06/06/17 09:08 Dose: 75 mg Enoxaparin Sodium (Lovenox) 40 mg SC DAILY [facility] PRN Reason: Protocol Sodium Bicarbonate 75 meq/ (Dextrose) 1,075 mls @ 100 mls/hr IV .[id number] [facility] Stop: 06/07/17 10:42 Last Admin: 06/06/17 12:22 Dose: 100 mls/hr Multivitamins/Minerals (Therapeutic-M Tab) 1 tab PO DAILY [facility] Last Admin: 06/06/17 09:08 Dose: 1 tab Physical Exam - Constitutional Appears: Non-toxic - Head Exam Head Exam: NORMAL INSPECTION - Eye Exam Eye Exam: Normal appearance - ENT Exam ENT Exam: Mucous Membranes Moist - Neck Exam Neck exam: Positive for: Full Rom - Respiratory Exam Respiratory Exam: NORMAL BREATHING PATTERN - Cardiovascular Exam Cardiovascular Exam: REGULAR RHYTHM - GI/Abdominal Exam GI & Abdominal Exam: Normal Bowel Sounds - Rectal Exam Rectal Exam: Deferred - Extremities Exam Extremities exam: Positive for: pedal edema - Back Exam Back exam: NORMAL INSPECTION - Neurological Exam Neurological exam: Alert, Oriented x3 - Psychiatric Exam Psychiatric exam: Normal Affect - Skin Skin Exam: Normal Color Results - Vital Signs Recent Vital Signs: Last Vital Signs Temp 97.5 F L 06/06/17 12:44 Pulse 61 06/06/17 12:44 Resp 18 06/06/17 12:44 BP 114/71 06/06/17 12:44 Pulse Ox 97 06/06/17 12:44 - Labs Result Diagrams: 06/06/17 07:50 06/06/17 07:50 Labs: Laboratory Results - last 24 hr 06/06/17 06/06/17 06/06/17 07:50 07:50 11:27 WBC 5.6 RBC 4.98 Hgb 15.2 D Hct 47.1 MCV 94.7 H MCH 30.5 MCHC 32.2 L RDW 15.4 H Plt Count 160 MPV 10.3 Neut % (Auto) 74.0 Lymph % (Auto) 13.1 L [place] % (Auto) 10.8 H Eos % (Auto) 1.5 Baso % (Auto) 0.6 Neut # 4.2 Lymph # 0.7 L [place] # 0.6 Eos # 0.1 Baso # 0.0 Sodium 147 Potassium 4.5 Chloride 122 H Carbon Dioxide 14 L Anion Gap 16 BUN 96 H Creatinine 1.5 Est GFR ( Amer) 54 Est GFR (Non-Af Amer) 44 Random Glucose 103 Calcium 8.2 L Phosphorus 3.5 Magnesium 2.6 H Total Bilirubin 2.2 H AST 82 H D ALT 69 Alkaline Phosphatase 48 Total Creatine Kinase 658 H Total Protein 7.3 Albumin 3.2 L D Globulin 4.2 H Albumin/Globulin Ratio 0.8 L Urine Color Urine Clarity Urine pH Ur Specific [place] Urine Protein Urine Glucose (UA) Urine Ketones Urine Blood Urine Nitrate Urine Bilirubin Urine Urobilinogen Ur Leukocyte Esterase Urine RBC (Auto) Urine Microscopic WBC Ur Squamous Epith Cells Urine Bacteria Hyaline Casts Ur Random Creatinine 62.0 Ur Random Sodium 59 06/06/17 11:27 WBC RBC Hgb Hct MCV MCH MCHC RDW Plt Count MPV Neut % (Auto) Lymph % (Auto) [place] % (Auto) Eos % (Auto) Baso % (Auto) Neut # Lymph # [place] # Eos # Baso # Sodium Potassium Chloride Carbon Dioxide Anion Gap BUN Creatinine Est GFR ( Amer) Est GFR (Non-Af Amer) Random Glucose Calcium Phosphorus Magnesium Total Bilirubin AST ALT Alkaline Phosphatase Total Creatine Kinase Total Protein Albumin Globulin Albumin/Globulin Ratio Urine Color Yellow Urine Clarity Clear Urine pH 6.0 Ur Specific [place] 1.017 Urine Protein Negative Urine Glucose (UA) Neg Urine Ketones Negative Urine Blood Small Urine Nitrate Negative Urine Bilirubin Negative Urine Urobilinogen 0.2-1.0 Ur Leukocyte Esterase Neg Urine RBC (Auto) < 1 Urine Microscopic WBC 1 Ur Squamous Epith Cells < 1 Urine Bacteria Mod H Hyaline Casts 0-2 Ur Random Creatinine Ur Random Sodium - EKG Data EKG Interpreted by: Myself - EKG Data EKG Specific Queries Rhythm: Atrial Flutter Assessment & Plan (1) Atrial flutter Assessment and Plan: unclear duration. recommend echocardiogram to evaluate LV function. Patient is at high risk for falls therefore long teem anticoagulation could be difficult. Status: Acute
[2017-06-06] MEDS: Enoxaparin 40 mg Syringe SC SCH (13:37)
[2017-06-07 07:32] LABS: BASO % 0.3 % (0.0-2.0); EOS # 0.1 K/uL (0.0-0.7); EOS % 2.2 % (0.0-4.0); LYMPH # 0.7 K/uL (1.0-4.3); LYMPH % 17.1 % (20.0-40.0); MEAN CELL VOLUME 92.5 fl (80.0-94.0); MEAN CORPUSCULAR HEMOGLOBIN 30.6 pg (27.0-31.0); MEAN CORPUSCULAR HGB CONC 33.1 g/dL (33.0-37.0); MEAN PLATELET VOLUME 10.2 fl (7.2-11.7); MONO # 0.5 K/uL (0.0-0.8); MONO % 11.5 % (0.0-10.0); NEUT # 2.8 K/uL (1.8-7.0); NEUT % 68.9 % (50.0-75.0); NRBC % 0.3 % (0.0-0.0); RED CELL DISTRIBUTION WIDTH 14.8 % (11.5-14.5)
[2017-06-07 07:39] LABS: ALB/GLOB RATIO 0.8 (1.0-2.1); ALKALINE PHOSPHATASE 49 U/L (38-126); ALT/SGPT 64 U/L (21-72); AST/SGOT 52 U/L (17-59); BILIRUBIN,TOTAL 1.6 mg/dl (0.2-1.3); BLOOD UREA NITROGEN 60 mg/dl (9-20); CALCIUM 8.4 mg/dL (8.4-10.2); CARBON DIOXIDE 22 mmol/L (22-30); CHLORIDE 111 mmol/L (98-107); GFR AFRICAN-AMERICAN > 60; GLUCOSE,RANDOM 130 mg/dL (75-110); POTASSIUM 3.9 MMOL/L (3.6-5.0); SODIUM 141 mmol/l (132-148)
--- NOTE | 2017-06-07 07:59 | CP.PCM.PN ---
Subjective - Date & Time of Evaluation Date of Evaluation: 06/07/17 Time of Evaluation: 07:58 - Subjective Subjective: pt doing well, no distress. no f/c, n/v/d for pt/ot eval and patricio placement. bw noted. cpk and bun/cr and lft all trending to normal Objective - Vital Signs/Intake and Output Vital Signs (last 24 hours): Temp Pulse Resp BP Pulse Ox 97.5 F L 61 18 137/80 98 06/07/17 05:00 06/07/17 05:00 06/07/17 05:00 06/07/17 05:00 06/07/17 05:00 Intake and Output: 06/07/17 06/07/17 06:59 18:59 Intake Total 1200 Balance 1200 - Medications Medications: Current Medications Acetaminophen (Tylenol 325mg Tab) 650 mg PO Q6 PRN PRN Reason: Pain, Mild (1-3) Last Admin: 06/06/17 21:25 Dose: 650 mg Amlodipine Besylate (Norvasc) 5 mg PO DAILY [facility] Last Admin: 06/06/17 09:08 Dose: 5 mg Aspirin (Ecotrin) 81 mg PO DAILY [facility] Last Admin: 06/06/17 09:08 Dose: 81 mg Atorvastatin Calcium (Lipitor) 20 mg PO HS [facility] Last Admin: 06/06/17 23:10 Dose: 20 mg Clopidogrel Bisulfate (Plavix) 75 mg PO DAILY [facility] Last Admin: 06/06/17 09:08 Dose: 75 mg Enoxaparin Sodium (Lovenox) 40 mg SC DAILY [facility] PRN Reason: Protocol Last Admin: 06/06/17 13:37 Dose: 40 mg Sodium Bicarbonate 75 meq/ (Dextrose) 1,075 mls @ 100 mls/hr IV .[id number] [facility] Stop: 06/07/17 10:42 Last Admin: 06/06/17 23:47 Dose: 100 mls/hr Multivitamins/Minerals (Therapeutic-M Tab) 1 tab PO DAILY [facility] Last Admin: 06/06/17 09:08 Dose: 1 tab - Labs Labs: 06/07/17 06:50 06/07/17 06:50 - Constitutional Appears: Well, Non-toxic, No Acute Distress - Head Exam Head Exam: ATRAUMATIC, NORMAL INSPECTION, NORMOCEPHALIC - Eye Exam Eye Exam: EOMI, Normal appearance, PERRL Pupil Exam: NORMAL ACCOMODATION, PERRL - ENT Exam ENT Exam: Mucous Membranes Moist, Normal Exam - Neck Exam Neck Exam: Full ROM, Normal Inspection. absent: Lymphadenopathy - Respiratory Exam Respiratory Exam: Clear to Ausculation Bilateral, NORMAL BREATHING PATTERN - Cardiovascular Exam Cardiovascular Exam: REGULAR RHYTHM, RRR, +S1, +S2. absent: Murmur - GI/Abdominal Exam GI & Abdominal Exam: Soft, Normal Bowel Sounds. absent: Tenderness - Extremities Exam Extremities Exam: Full ROM, Normal Capillary Refill, Normal Inspection. absent : Joint Swelling, Pedal Edema - Back Exam Back Exam: NORMAL INSPECTION - Neurological Exam Neurological Exam: Alert, Awake, CN II-XII Intact, Normal Gait, Oriented x3 - Psychiatric Exam Psychiatric exam: Normal Affect, Normal Mood - Skin Skin Exam: Dry, Intact, Normal Color, Warm Assessment and Plan (1) Dehydration Status: Acute (2) Rhabdomyolysis Status: Acute (3) Syncope Status: Acute (4) DVT prophylaxis Status: Acute (5) Fall Status: Acute - Assessment and Plan (Free Text) Assessment: (1) Dehydration Assessment and Plan: ivf nephro bun/cr improving trend numbers Status: Acute (2) Rhabdomyolysis Assessment and Plan: trend cpk nephro ivf Status: Acute (3) Syncope Assessment and Plan: cardio tele monitoring no further episodes of same. likely nonsyncope but mechanical fall Status: Acute (4) DVT prophylaxis Assessment and Plan: scd and ae hose ambulation Status: Acute (5) Fall Assessment and Plan: pt/ot patricio Status: Acute
[2017-06-07] MEDS: Multivitamin With Minerals Tab PO SCH (08:42)
[2017-06-07] MEDS: Enoxaparin 40 mg Syringe SC SCH (08:44)
[2017-06-07] MEDS: Sodium Bicarbonate 8.4% 75 MEQ in Dextrose 5% In Water 1,000 ML IV SCH (14:43)
--- NOTE | 2017-06-07 15:19 | CP.PCM.PN ---
Subjective - Date & Time of Evaluation Date of Evaluation: 06/07/17 Time of Evaluation: 15:19 - Subjective Subjective: RENAL FOLLOW UP NOTE Objective - Vital Signs/Intake and Output Vital Signs (last 24 hours): Temp Pulse Resp BP Pulse Ox 98.2 F 64 18 98/56 L 97 06/07/17 12:05 06/07/17 12:05 06/07/17 12:05 06/07/17 12:05 06/07/17 12:05 Intake and Output: 06/07/17 06/07/17 06:59 18:59 Intake Total 1200 Balance 1200 - Medications Medications: Current Medications Acetaminophen (Tylenol 325mg Tab) 650 mg PO Q6 PRN PRN Reason: Pain, Mild (1-3) Last Admin: 06/06/17 21:25 Dose: 650 mg Amlodipine Besylate (Norvasc) 5 mg PO DAILY [facility] Last Admin: 06/07/17 08:42 Dose: 5 mg Aspirin (Ecotrin) 81 mg PO DAILY [facility] Last Admin: 06/07/17 08:42 Dose: 81 mg Atorvastatin Calcium (Lipitor) 20 mg PO HS [facility] Last Admin: 06/06/17 23:10 Dose: 20 mg Clopidogrel Bisulfate (Plavix) 75 mg PO DAILY [facility] Last Admin: 06/07/17 08:42 Dose: 75 mg Enoxaparin Sodium (Lovenox) 40 mg SC DAILY [facility] PRN Reason: Protocol Last Admin: 06/07/17 08:44 Dose: 40 mg Ceftriaxone Sodium 1 gm/ (Sodium Chloride) 100 mls @ 100 mls/hr IVPB DAILY [facility] Last Admin: 06/07/17 11:59 Dose: 100 mls/hr Multivitamins/Minerals (Therapeutic-M Tab) 1 tab PO DAILY [facility] Last Admin: 06/07/17 08:42 Dose: 1 tab - Labs Labs: 06/07/17 06:50 06/07/17 06:50 - Constitutional Appears: Non-toxic, No Acute Distress - Head Exam Head Exam: NORMAL INSPECTION - Eye Exam Eye Exam: Normal appearance - ENT Exam ENT Exam: Mucous Membranes Moist - Respiratory Exam Respiratory Exam: NORMAL BREATHING PATTERN - Cardiovascular Exam Cardiovascular Exam: +S1, +S2 - GI/Abdominal Exam GI & Abdominal Exam: Soft - Extremities Exam Extremities Exam: Normal Inspection - Neurological Exam Neurological Exam: Alert, Awake, Oriented x3 - Psychiatric Exam Psychiatric exam: Normal Affect - Skin Skin Exam: Dry Assessment and Plan - Assessment and Plan (Free Text) Plan: ÁLVARO/hypernatremia/fall.Metabolic acidosis/rhabdomyolysis prerenal sec to volume depletion lytes reviewed continue fluids monitor I&Os and urine output
[2017-06-07] MEDS ORDERED: Sodium Bicarbonate 8.4% 75 MEQ in Dextrose 5% In Water 1,000 ML IV SCH (18:09)
[2017-06-08 06:28] LABS: EOS # 0.1 K/uL (0.0-0.7); EOS % 2.3 % (0.0-4.0); HEMATOCRIT 42.9 % (35.0-51.0); LYMPH # 0.7 K/uL (1.0-4.3); LYMPH % 18.7 % (20.0-40.0); MEAN CELL VOLUME 91.7 fl (80.0-94.0); MEAN CORPUSCULAR HEMOGLOBIN 30.5 pg (27.0-31.0); MEAN CORPUSCULAR HGB CONC 33.3 g/dL (33.0-37.0); MEAN PLATELET VOLUME 10.3 fl (7.2-11.7); MONO # 0.5 K/uL (0.0-0.8); MONO % 11.9 % (0.0-10.0); NEUT # 2.5 K/uL (1.8-7.0); NEUT % 66.1 % (50.0-75.0); NRBC % 0.2 % (0.0-0.0); RED CELL DISTRIBUTION WIDTH 14.3 % (11.5-14.5); WHITE BLOOD COUNT 3.8 K/uL (4.8-10.8)
[2017-06-08 06:34] LABS: ALB/GLOB RATIO 0.8 (1.0-2.1); ALKALINE PHOSPHATASE 60 U/L (38-126); ALT/SGPT 56 U/L (21-72); AST/SGOT 37 U/L (17-59); BILIRUBIN,TOTAL 1.1 mg/dl (0.2-1.3); BLOOD UREA NITROGEN 38 mg/dl (9-20); CALCIUM 8.5 mg/dL (8.4-10.2); CARBON DIOXIDE 25 mmol/L (22-30); CHLORIDE 107 mmol/L (98-107); GFR AFRICAN-AMERICAN > 60; GLUCOSE,RANDOM 129 mg/dL (75-110); POTASSIUM 3.8 MMOL/L (3.6-5.0); SODIUM 140 mmol/l (132-148); TOTAL PROTEIN 6.8 G/DL (6.3-8.2)
--- NOTE | 2017-06-08 08:22 | CP.PCM.PN ---
Subjective - Date & Time of Evaluation Date of Evaluation: 06/08/17 Time of Evaluation: 08:22 - Subjective Subjective: doing well, no complaints. for patricio bw noted and cpk wnl Objective - Vital Signs/Intake and Output Vital Signs (last 24 hours): Temp Pulse Resp BP Pulse Ox 97.0 F L 61 18 132/74 96 06/08/17 05:30 06/08/17 05:30 06/08/17 05:30 06/08/17 05:30 06/08/17 05:30 - Medications Medications: Current Medications Acetaminophen (Tylenol 325mg Tab) 650 mg PO Q6 PRN PRN Reason: Pain, Mild (1-3) Last Admin: 06/07/17 21:52 Dose: 650 mg Amlodipine Besylate (Norvasc) 5 mg PO DAILY [facility] Last Admin: 06/07/17 08:42 Dose: 5 mg Aspirin (Ecotrin) 81 mg PO DAILY [facility] Last Admin: 06/07/17 08:42 Dose: 81 mg Atorvastatin Calcium (Lipitor) 20 mg PO HS [facility] Last Admin: 06/07/17 21:53 Dose: 20 mg Clopidogrel Bisulfate (Plavix) 75 mg PO DAILY [facility] Last Admin: 06/07/17 08:42 Dose: 75 mg Enoxaparin Sodium (Lovenox) 40 mg SC DAILY [facility] PRN Reason: Protocol Last Admin: 06/07/17 08:44 Dose: 40 mg Ceftriaxone Sodium 1 gm/ (Sodium Chloride) 100 mls @ 100 mls/hr IVPB DAILY [facility] Last Admin: 06/07/17 11:59 Dose: 100 mls/hr Sodium Bicarbonate 75 meq/ (Dextrose) 1,075 mls @ 100 mls/hr IV .[id number] [facility] Stop: 06/08/17 18:09 Last Admin: 06/08/17 00:32 Dose: 100 mls/hr Multivitamins/Minerals (Therapeutic-M Tab) 1 tab PO DAILY [facility] Last Admin: 06/07/17 08:42 Dose: 1 tab - Labs Labs: 06/08/17 05:00 06/08/17 05:00 - Constitutional Appears: Well, Non-toxic, No Acute Distress - Head Exam Head Exam: ATRAUMATIC, NORMAL INSPECTION, NORMOCEPHALIC - Eye Exam Eye Exam: EOMI, Normal appearance, PERRL Pupil Exam: NORMAL ACCOMODATION, PERRL - ENT Exam ENT Exam: Mucous Membranes Moist, Normal Exam - Neck Exam Neck Exam: Full ROM, Normal Inspection. absent: Lymphadenopathy - Respiratory Exam Respiratory Exam: Clear to Ausculation Bilateral, NORMAL BREATHING PATTERN - Cardiovascular Exam Cardiovascular Exam: REGULAR RHYTHM, RRR, +S1, +S2. absent: Murmur - GI/Abdominal Exam GI & Abdominal Exam: Soft, Normal Bowel Sounds. absent: Tenderness - Extremities Exam Extremities Exam: Full ROM, Normal Capillary Refill, Normal Inspection. absent : Joint Swelling, Pedal Edema - Back Exam Back Exam: NORMAL INSPECTION - Neurological Exam Neurological Exam: Alert, Awake, CN II-XII Intact, Normal Gait, Oriented x3 - Psychiatric Exam Psychiatric exam: Normal Affect, Normal Mood - Skin Skin Exam: Dry, Intact, Normal Color, Warm Assessment and Plan (1) Dehydration Status: Acute (2) Rhabdomyolysis Status: Acute (3) Syncope Status: Acute (4) DVT prophylaxis Status: Acute (5) Fall Status: Acute - Assessment and Plan (Free Text) Assessment: (1) Dehydration Assessment and Plan: ivf nephro bun/cr improving trend numbers Status: Acute (2) Rhabdomyolysis Assessment and Plan: trend cpk nephro ivf Status: Acute (3) Syncope Assessment and Plan: cardio tele monitoring no further episodes of same. likely nonsyncope but mechanical fall Status: Acute (4) DVT prophylaxis Assessment and Plan: scd and ae hose ambulation Status: Acute (5) Fall Assessment and Plan: pt/ot patricio Status: Acute ?? dc to patricio today
--- NOTE | 2017-06-08 08:23 | CP.PCM.PN ---
Subjective - Date & Time of Evaluation Date of Evaluation: 06/07/17 Time of Evaluation: 10:00 - Subjective Subjective: patient has no chest pain or dyspnea Objective - Vital Signs/Intake and Output Vital Signs (last 24 hours): Temp Pulse Resp BP Pulse Ox 97.0 F L 61 18 132/74 96 06/08/17 05:30 06/08/17 05:30 06/08/17 05:30 06/08/17 05:30 06/08/17 05:30 - Medications Medications: Current Medications Acetaminophen (Tylenol 325mg Tab) 650 mg PO Q6 PRN PRN Reason: Pain, Mild (1-3) Last Admin: 06/07/17 21:52 Dose: 650 mg Amlodipine Besylate (Norvasc) 5 mg PO DAILY [facility] Last Admin: 06/07/17 08:42 Dose: 5 mg Aspirin (Ecotrin) 81 mg PO DAILY [facility] Last Admin: 06/07/17 08:42 Dose: 81 mg Atorvastatin Calcium (Lipitor) 20 mg PO HS [facility] Last Admin: 06/07/17 21:53 Dose: 20 mg Clopidogrel Bisulfate (Plavix) 75 mg PO DAILY [facility] Last Admin: 06/07/17 08:42 Dose: 75 mg Enoxaparin Sodium (Lovenox) 40 mg SC DAILY [facility] PRN Reason: Protocol Last Admin: 06/07/17 08:44 Dose: 40 mg Ceftriaxone Sodium 1 gm/ (Sodium Chloride) 100 mls @ 100 mls/hr IVPB DAILY [facility] Last Admin: 06/07/17 11:59 Dose: 100 mls/hr Sodium Bicarbonate 75 meq/ (Dextrose) 1,075 mls @ 100 mls/hr IV .[id number] [facility] Stop: 06/08/17 18:09 Last Admin: 06/08/17 00:32 Dose: 100 mls/hr Multivitamins/Minerals (Therapeutic-M Tab) 1 tab PO DAILY [facility] Last Admin: 06/07/17 08:42 Dose: 1 tab - Labs Labs: 06/08/17 05:00 06/08/17 05:00 - Constitutional Appears: Non-toxic - Head Exam Head Exam: NORMAL INSPECTION - Eye Exam Eye Exam: Normal appearance - ENT Exam ENT Exam: Mucous Membranes Moist - Neck Exam Neck Exam: Full ROM - Respiratory Exam Respiratory Exam: NORMAL BREATHING PATTERN - Cardiovascular Exam Cardiovascular Exam: REGULAR RHYTHM - GI/Abdominal Exam GI & Abdominal Exam: Normal Bowel Sounds - Rectal Exam Rectal Exam: Deferred - Extremities Exam Extremities Exam: absent: Pedal Edema - Neurological Exam Neurological Exam: Alert, Oriented x3 - Psychiatric Exam Psychiatric exam: Normal Mood - Skin Skin Exam: Warm Assessment and Plan (1) Atrial flutter Assessment & Plan: controlled ventricular rate. Will review echocardiogram. would not consider cardioversion or ablation at this time as patient would have to be anticoagulated. he lives alone and was found on the floor for more than 2 days therefore he would be at significant risk of bleeding. Status: Acute
[2017-06-08] MEDS: Enoxaparin 40 mg Syringe SC SCH (08:39)
[2017-06-08 08:40] VITALS: O2SAT 97
[2017-06-08] MEDS: Multivitamin With Minerals Tab PO SCH (08:43)
--- NOTE | 2017-06-08 11:15 | CP.PCM.PN ---
Subjective - Date & Time of Evaluation Date of Evaluation: 06/08/17 Time of Evaluation: 11:13 - Subjective Subjective: Patient sitting up in bed Arelis conscious Patient appeared to be eating well No complaining reported Objective - Vital Signs/Intake and Output Vital Signs (last 24 hours): Temp Pulse Resp BP Pulse Ox 97.9 F 71 18 144/83 97 06/08/17 09:00 06/08/17 09:00 06/08/17 09:00 06/08/17 09:00 06/08/17 09:00 - Medications Medications: Current Medications Acetaminophen (Tylenol 325mg Tab) 650 mg PO Q6 PRN PRN Reason: Pain, Mild (1-3) Last Admin: 06/07/17 21:52 Dose: 650 mg Amlodipine Besylate (Norvasc) 5 mg PO DAILY [facility] Last Admin: 06/08/17 08:42 Dose: 5 mg Aspirin (Ecotrin) 81 mg PO DAILY [facility] Last Admin: 06/08/17 08:39 Dose: 81 mg Atorvastatin Calcium (Lipitor) 20 mg PO HS [facility] Last Admin: 06/07/17 21:53 Dose: 20 mg Clopidogrel Bisulfate (Plavix) 75 mg PO DAILY [facility] Last Admin: 06/08/17 08:43 Dose: 75 mg Enoxaparin Sodium (Lovenox) 40 mg SC DAILY [facility] PRN Reason: Protocol Last Admin: 06/08/17 08:39 Dose: 40 mg Ceftriaxone Sodium 1 gm/ (Sodium Chloride) 100 mls @ 100 mls/hr IVPB DAILY [facility] Last Admin: 06/08/17 08:44 Dose: 100 mls/hr Sodium Bicarbonate 75 meq/ (Dextrose) 1,075 mls @ 100 mls/hr IV .[id number] [facility] Stop: 06/08/17 18:09 Last Admin: 06/08/17 00:32 Dose: 100 mls/hr Multivitamins/Minerals (Therapeutic-M Tab) 1 tab PO DAILY [facility] Last Admin: 06/08/17 08:43 Dose: 1 tab - Labs Labs: 06/08/17 05:00 06/08/17 05:00 - Constitutional Appears: No Acute Distress - ENT Exam ENT Exam: Mucous Membranes Moist - Cardiovascular Exam Cardiovascular Exam: absent: JVD, Rubs - Extremities Exam Extremities Exam: absent: Calf Tenderness - Back Exam Back Exam: absent: CVA tenderness (L), CVA tenderness (R) - Neurological Exam Neurological Exam: Alert Assessment and Plan - Assessment and Plan (Free Text) Assessment: Patient appeared to be recovering from acute kidney injury BUN/creatinine coming down electrolyte improving. ÁLVARO/hypernatremia/fall.Metabolic acidosis/rhabdomyolysis prerenal sec to volume depletion lytes reviewed continue fluids
--- NOTE | 2017-06-08 11:42 | CARD ---
APPROVED REPORT EXAM: Two-dimensional and M-mode echocardiogram with Doppler and color Doppler. Other Information Quality : GoodRhythm : Atrial Flutter INDICATION Abnormal EKG/Arrhythmia 2D DIMENSIONS IVSd1.42 (0.7-1.1cm)LVDd4.54 (3.9-5.9cm) LVOT Diameter2.81 (1.8-2.4cm)PWd0.83 (0.7-1.1cm) IVSs1.44 (0.8-1.2cm)LVDs3.96 (2.5-4.0cm) FS (%) 12.9 %PWs1.20 (0.8-1.2cm) M-Mode DIMENSIONS Left Atrium (MM)3.81 (2.5-4.0cm)IVSd1.34 (0.7-1.1cm) Aortic Root4.22 (2.2-3.7cm)LVDd5.91 (4.0-5.6cm) Aortic Cusp Exc.1.88 (1.5-2.0cm)PWd0.97 (0.7-1.1cm) IVSs1.47 cmFS (%) 17 % LVDs4.88 (2.0-3.8cm)PWs0.88 cm Mitral Valve MV E Qwvxfbxh93.0cm/sMV DECEL [id number] A Pndejdlb42.2cm/s MV LSM88ivR/A ratio1.5MVA (PHT)3.59cm2 TDI E/Lateral E'0.0E/Medial E'0.0 Pulmonary Valve PV Peak Uqzzpfaj107.5cm/s LEFT VENTRICLE The left ventricle is normal size. There is normal left ventricular wall thickness. The left ventricular function is normal. The left ventricular ejection fraction is 60% There is normal LV segmental wall motion. Transmitral Doppler flow pattern is Grade II-pseudonormal filling dynamics. No left ventricle thrombus noted on this study. There is no ventricular septal defect visualized. There is no left ventricular aneurysm. There is no mass noted in the left ventricle. RIGHT VENTRICLE The right ventricle is normal size. There is normal right ventricular wall thickness. The right ventricular systolic function is normal. ATRIA The left atrium size is normal. The right atrium size is normal. The interatrial septum is intact with no evidence for an atrial septal defect. AORTIC VALVE The aortic valve is moderately sclerotic. No aortic regurgitation is present. There is no aortic valvular stenosis. There is no aortic valvular vegetation. MITRAL VALVE The mitral valve is normal in structure and function. There is no evidence of mitral valve prolapse. There is no mitral valve stenosis. There is no mitral valve regurgitation noted. TRICUSPID VALVE The tricuspid valve is normal in structure and function. There is no tricuspid valve regurgitation noted. There is no tricuspid valve prolapse or vegetation. There is no tricuspid valve stenosis. PULMONIC VALVE The pulmonary valve is normal in structure and function. There is no pulmonic valvular regurgitation. There is no pulmonic valvular stenosis. GREAT VESSELS The aortic root is normal in size. The ascending aorta is normal in size. The IVC is normal in size and collapses >50% with inspiration. PERICARDIAL EFFUSION The pericardium appears normal. There is no pleural effusion. <Conclusion> Normal LV Function Aortic Valve Sclerosis
[2017-06-08 12:27] VITALS: RESP 20
--- NOTE | 2017-06-08 13:11 | CP.PCM.DIS ---
Provider - Provider Date of Admission: 06/05/17 18:32 Attending physician: yTler Rodgers MD Time Spent in preparation of Discharge (in minutes): 15 Diagnosis - Discharge Diagnosis (1) Dehydration Status: Acute (2) Rhabdomyolysis Status: Acute (3) Syncope Status: Acute (4) DVT prophylaxis Status: Acute (5) Fall Status: Acute Hospital Course - Lab Results Lab Results: Micro Results 06/05/17 18:40 Urine Urine Culture - Preliminary Gram Negative [place] 06/06/17 08:49 Urine,Clean Catch Urine Culture - Preliminary Gram Negative [place] Most Recent Lab Values WBC 3.8 K/uL (4.8-10.8) L 06/08/17 05:00 RBC 4.67 Mil/uL (4.40-5.90) 06/08/17 05:00 Hgb 14.3 g/dL (12.0-18.0) 06/08/17 05:00 Hct 42.9 % (35.0-51.0) 06/08/17 05:00 MCV 91.7 fl (80.0-94.0) 06/08/17 05:00 MCH 30.5 pg (27.0-31.0) 06/08/17 05:00 MCHC 33.3 g/dL (33.0-37.0) 06/08/17 05:00 RDW 14.3 % (11.5-14.5) 06/08/17 05:00 Plt Count 115 K/uL (130-400) L 06/08/17 05:00 MPV 10.3 fl (7.2-11.7) 06/08/17 05:00 Neut % (Auto) 66.1 % (50.0-75.0) 06/08/17 05:00 Lymph % (Auto) 18.7 % (20.0-40.0) L 06/08/17 05:00 [place] % (Auto) 11.9 % (0.0-10.0) H 06/08/17 05:00 Eos % (Auto) 2.3 % (0.0-4.0) 06/08/17 05:00 Baso % (Auto) 1.0 % (0.0-2.0) 06/08/17 05:00 Neut # 2.5 K/uL (1.8-7.0) 06/08/17 05:00 Lymph # 0.7 K/uL (1.0-4.3) L 06/08/17 05:00 [place] # 0.5 K/uL (0.0-0.8) 06/08/17 05:00 Eos # 0.1 K/uL (0.0-0.7) 06/08/17 05:00 Baso # 0.0 K/uL (0.0-0.2) 06/08/17 05:00 Neutrophils % (Manual) 84 % (42-75) H 06/05/17 16:40 Lymphocytes % (Manual) 8 % (20-50) L 06/05/17 16:40 Monocytes % (Manual) 8 % (0-10) 06/05/17 16:40 Platelet Estimate Normal (NORMAL) 06/05/17 16:40 Anisocytosis (manual) Slight 06/05/17 16:40 Ovalocytes Slight 06/05/17 16:40 pO2 23 mm/Hg (30-55) L 06/05/17 16:30 VBG pH 7.28 (7.32-7.43) L 06/05/17 16:30 VBG pCO2 46 mmHg (40-60) 06/05/17 16:30 VBG HCO3 19.1 mmol/L 06/05/17 16:30 VBG Total CO2 23.0 mmol/L (22-28) 06/05/17 16:30 VBG O2 Sat (Calc) 36.1 % (40-65) L 06/05/17 16:30 VBG Base Excess -5.2 mmol/L (0.0-2.0) L 06/05/17 16:30 VBG Potassium 5.2 mmol/L (3.6-5.2) 06/05/17 16:30 Sodium 148.0 mmol/L (132-148) 06/05/17 16:30 Chloride 112.0 mmol/L (98-107) H 06/05/17 16:30 Glucose 117 mg/dL (75-110) H 06/05/17 16:30 Lactate 1.8 mmol/L (0.7-2.1) 06/05/17 16:30 FiO2 21.0 % 06/05/17 16:30 Sodium 140 mmol/l (132-148) 06/08/17 05:00 Potassium 3.8 MMOL/L (3.6-5.0) 06/08/17 05:00 Chloride 107 mmol/L (98-107) 06/08/17 05:00 Carbon Dioxide 25 mmol/L (22-30) 06/08/17 05:00 Anion Gap 11 (10-20) 06/08/17 05:00 BUN 38 mg/dl (9-20) H 06/08/17 05:00 Creatinine 1.2 mg/dL (0.8-1.5) 06/08/17 05:00 Est GFR ( Amer) > 60 06/08/17 05:00 Est GFR (Non-Af Amer) 57 06/08/17 05:00 POC Glucose (mg/dL) 103 mg/dL (65-110) 06/05/17 16:26 Random Glucose 129 mg/dL (75-110) H 06/08/17 05:00 Calcium 8.5 mg/dL (8.4-10.2) 06/08/17 05:00 Phosphorus 3.5 mg/dl (2.5-4.5) 06/06/17 07:50 Magnesium 2.6 MG/DL (1.6-2.3) H 06/06/17 07:50 Total Bilirubin 1.1 mg/dl (0.2-1.3) 06/08/17 05:00 AST 37 U/L (17-59) 06/08/17 05:00 ALT 56 U/L (21-72) 06/08/17 05:00 Alkaline Phosphatase 60 U/L (38-126) 06/08/17 05:00 Total Creatine Kinase 82 U/L (55-170) 06/08/17 05:00 Total Protein 6.8 G/DL (6.3-8.2) 06/08/17 05:00 Albumin 3.1 g/dL (3.5-5.0) L 06/08/17 05:00 Globulin 3.8 gm/dL (2.2-3.9) 06/08/17 05:00 Albumin/Globulin Ratio 0.8 (1.0-2.1) L 06/08/17 05:00 Venous Blood Potassium 5.2 mmol/L (3.6-5.2) 06/05/17 16:30 Urine Color Yellow (YELLOW) 06/06/17 11:27 Urine Clarity Clear (Clear) 06/06/17 11:27 Urine pH 6.0 (5.0-8.0) 06/06/17 11:27 Ur Specific [place] 1.017 (1.003-1.030) 06/06/17 11:27 Urine Protein Negative mg/dL (NEGATIVE) 06/06/17 11:27 Urine Glucose (UA) Neg mg/dL (Normal) 06/06/17 11:27 Urine Ketones Negative mg/dL (NEGATIVE) 06/06/17 11:27 Urine Blood Small (NEGATIVE) 06/06/17 11:27 Urine Nitrate Negative (NEGATIVE) 06/06/17 11:27 Urine Bilirubin Negative (NEGATIVE) 06/06/17 11:27 Urine Urobilinogen 0.2-1.0 mg/dL (0.2-1.0) 06/06/17 11:27 Ur Leukocyte Esterase Neg [place]/uL (Negative) 06/06/17 11:27 Urine RBC (Auto) < 1 /hpf (0-3) 06/06/17 11:27 Urine Microscopic WBC 1 /hpf (0-5) 06/06/17 11:27 Ur Squamous Epith Cells < 1 /hpf (0-5) 06/06/17 11:27 Urine Bacteria Mod (<OCC) H 06/06/17 11:27 Hyaline Casts 0-2 /hpf (0-2) 06/06/17 11:27 Ur Random Creatinine 62.0 mg/dL 06/06/17 11:27 Ur Random Sodium 59 mmol/L 06/06/17 11:27 Discharge Exam - Head Exam Head Exam: NORMAL INSPECTION Discharge Plan - Follow Up Plan Condition: FAIR Disposition: HOME/ ROUTINE Additional Instructions: dc to patricio, meds per med rec, monitor cmp/cpk. rted prn, final dx-fall, rhabdo, dehydration
[2017-06-08 15:51] VITALS: BP 129/72; PULSE 62; TEMP 98.3
== END 2017-06-08 19:10 | DRG 683 ==
LOC: H.ER 15:58 → H.ERHOLD 18:32 → H.TEL 20:45
PROVIDERS: ADMIT Family Medicine; ATTEND Family Medicine
DX: N17.9 Acute kidney failure, unspecified (principal); E87.0 Hyperosmolality and hypernatremia; E87.4 Mixed disorder of acid-base balance; M62.82 Rhabdomyolysis; I48.92 Unspecified atrial flutter; E78.00 Pure hypercholesterolemia, unspecified; E86.0 Dehydration; E78.5 Hyperlipidemia, unspecified; I10 Essential (primary) hypertension; Z86.73 Personal history of transient ischemic attack (TIA), and cerebral infarction without residual deficits; R55 Syncope and collapse

== ENCOUNTER 2017-06-12 18:35 | Inpatient (IN) | payer MEDICARE ==
[2017-06-12 18:36] VITALS: BMI 30.4
--- NOTE | 2017-06-12 18:50 | ED PDOC ---
HPI: Abdomen Time Seen by Provider: 06/12/17 18:39 Chief Complaint (Nursing): Abdominal Pain Chief Complaint (Provider): Syncopal Episode and Vomiting History Per: Patient History/Exam Limitations: no limitations Onset/Duration Of Symptoms: Hrs Outside of [place] travel?: No Associated Symptoms: Vomiting Additional Complaint(s): Jake Jeter, an 87 year old female, is brought into the ED by the EMS from [facility] for an episode of syncope associated with coffee ground vomitus and right sided arm pain. History is limited due to patient's inability to properly communicate information hence information gathered from care home papers. As per care home papers the patients last episode of vomiting was at 1730. shelter papers also state that the syncopal episode occurred while the patient was sitting in a chair and lasted for a few seconds. In ED patient is pointing to epigastrium complaining of pain. PMD: Maryan Gomez Of Note: Patient is currently taking the following medications: Aspirin, Lipitor , Lovenox for DVT prophylaxis Past Medical History Reviewed: Historical Data, Nursing Documentation, Vital Signs Vital Signs: Last Vital Signs Temp 98.2 F 06/14/17 08:00 Pulse 58 L 06/14/17 10:00 Resp 16 06/14/17 10:00 BP 99/46 L 06/14/17 10:00 Pulse Ox 100 06/14/17 10:00 - Medical History PMH: CVA, HTN, Hypercholesterolemia, TIA (1 month ago) Denies: Anxiety, Arthritis, CHF, COPD, HIV, Hypothyroidism, Chronic Kidney Disease, Rheumatoid Arthritis - Surgical History Surgical History: No Surg Hx - Family History Family History: States: Unknown Family Hx - Home Medications Home Medications: Ambulatory Orders Medication Instructions Recorded Multivitamin/Iron/Folic Acid 1 tab PO DAILY 12/02/14 [Centrum Complete Multivit Tab] Aspirin [Ecotrin] 81 mg PO DAILY 12/04/14 Atorvastatin [Lipitor] 20 mg PO HS #0 tab 10/11/15 Clopidogrel [Plavix] 75 mg PO DAILY 06/05/17 amLODIPine [Norvasc] 5 mg PO DAILY 06/05/17 Acetaminophen [Tylenol 325mg tab] 650 mg PO Q6 PRN tab 06/08/17 Enoxaparin [Lovenox] 40 mg SC DAILY [facility] 06/08/17 - Allergies Allergies/Adverse Reactions: Allergies Allergy/AdvReac Type Severity Reaction Status Date / Time No Known Allergies Allergy Verified 10/10/15 18:03 Review of Systems ROS Statement: Except As Marked, All Systems Reviewed And Found Negative Cardiovascular: Positive for: Chest Pain (pointing to epigastrium) Gastrointestinal: Positive for: Vomiting (Coffee grounds) Neurological: Positive for: Other (Syncopal episode) Physical Exam - Reviewed Nursing Documentation Reviewed: Yes Vital Signs Reviewed: Yes - Physical Exam Appears: Positive for: Non-toxic, No Acute Distress Head Exam: Positive for: ATRAUMATIC, NORMAL INSPECTION, NORMOCEPHALIC Skin: Positive for: Normal Color, Warm, Dry. Negative for: Rash Eye Exam: Positive for: Normal appearance, EOMI, PERRL. Negative for: Nystagmus ENT: Positive for: Normal ENT Inspection. Negative for: Nasal Congestion, Tonsillar Exudate Neck: Positive for: Normal, Painless ROM, Supple Cardiovascular/Chest: Positive for: Regular Rate, Rhythm, Chest Non Tender. Negative for: Tachycardia Respiratory: Positive for: Normal Breath Sounds. Negative for: Rales, Rhonchi, Wheezing, Respiratory Distress Gastrointestinal/Abdominal: Positive for: Normal Exam, Bowel Sounds, Soft. Negative for: Tenderness, Mass, Guarding, Rebound Back: Positive for: Normal Inspection. Negative for: L CVA Tenderness, R CVA Tenderness Rectal: Positive for: Black Stool Extremity: Positive for: Normal ROM. Negative for: Tenderness, Deformity, Swelling Neurologic/Psych: Positive for: Alert, Oriented - Laboratory Results Result Diagrams: 06/14/17 04:20 06/14/17 04:20 - ECG O2 Sat by Pulse Oximetry: 100 (RA) Pulse Ox Interpretation: Normal Medical Decision Making Medical Decision Makin Initial Impression: 87 y/o male presenting with vomiting, right sided arm pain and syncopal episode Initial Plan: * ABO/RH Type * Type and Screen * ABD& Pelv IV contrast * EKG-ED * CMP * CPK * Lipase * Troponin * Udip * CBC * PTT * Prothrombin time * CXR * NS 1000mls IV 125mls/hr * Reevaluation Scribe Attestation Documented by Marion Alonzo acting as a scribe for Ángela Loaiza MD. Provider Attestation All medical record entries made by the Scribe were at my direction and personally dictated by me. I have reviewed the chart and agree that the record accurately reflects my personal performance of the history, physical exam, medical decision making, and the department course for this patient. I have also personally directed, reviewed, and agree with the discharge instructions and disposition. Disposition - Clinical Impression Clinical Impression: GIB (gastrointestinal bleeding), Anemia - Patient ED Disposition Is Patient to be Admitted: Transfer of Care - Disposition Disposition Time: 19:00 Condition: GUARDED Patient Signed Over To: Hill Rodriguez Handoff Comments: Pending labs and imaging.
[2017-06-12] MEDS ORDERED: Sodium Chloride 0.9% 1,000 ML IV STA (18:52)
--- NOTE | 2017-06-12 19:10 | ED PDOC ---
- Laboratory Results Result Diagrams: 06/12/17 20:25 06/12/17 20:25 - ECG O2 Sat by Pulse Oximetry: 100 (RA) Pulse Ox Interpretation: Normal Medical Decision Making Medical Decision Making: Patient signed out to provider at [address] Loaiza pending labs. Any new updates will be documented under the ED OBS section. Scribe Attestation Documented by Marion Alonzo acting as a scribe for Hill Rodriguez MD. Provider Attestation All medical record entries made by the Scribe were at my direction and personally dictated by me. I have reviewed the chart and agree that the record accurately reflects my personal performance of the history, physical exam, medical decision making, and the department course for this patient. I have also personally directed, reviewed, and agree with the discharge instructions and disposition. Disposition - Clinical Impression Clinical Impression: GIB (gastrointestinal bleeding), Anemia - POA Present On Arrival: None - Disposition Disposition: Admitted as In-Patient Disposition Time: 19:00 Condition: CRITICAL ED OBSERVATION Date of observation admission: 06/12/17 Time of observation admission: 19:00 - Observation admission statement Patient is being placed in observation because:: Pending ED work up. - Progress Note Progress Note: 06/12/17 20:22 Patient is resting comfortably, pending labs. 06/12/17 21:37 Patient has significant bleeding, spoke with who reccomends PPI drip, blood transfusion and 2 units of PRBC. Will place central line. CT ordered with PO contrast as ordered by . 06/12/17 23:12 Pt.remains with stable vitals. Central line placed (See procedure note). 2 units PRBC. Sending patient to CT and then to ICU. Central Line Placement - Central Line Placement Indication: Emergent IV Access Central Line Placement: Right: Internal Jugular The Area Was Thoroughly Prepared With: Betadine Area Was Locally Anesthetized With: Lidocaine 1% Procedure: Triple Lumen, Placed Using Standard Seldinger Technique, Catheter Was Sewn Into Place, Sterile Dressing Placed Over Line, Procedure Tolerated Well
[2017-06-12] MEDS ORDERED: Sterile Water 10 ML IV ONE ×2 (19:36→21:27)
[2017-06-12 20:41] LABS: ALB/GLOB RATIO 0.9 (1.0-2.1); BILIRUBIN,TOTAL 0.7 mg/dl (0.2-1.3); CALCIUM 8.6 mg/dL (8.4-10.2); TOTAL PROTEIN 6.1 G/DL (6.3-8.2)
[2017-06-12 20:42] LABS: BASO # 0.1 K/uL (0.0-0.2); BASO % 0.3 % (0.0-2.0); EOS # 0.1 K/uL (0.0-0.7); EOS % 0.3 % (0.0-4.0); HEMATOCRIT 21.2 % (35.0-51.0); LYMPH # 1.8 K/uL (1.0-4.3); MEAN CELL VOLUME 93.5 fl (80.0-94.0); MEAN CORPUSCULAR HEMOGLOBIN 31.5 pg (27.0-31.0); MEAN CORPUSCULAR HGB CONC 33.7 g/dL (33.0-37.0); MEAN PLATELET VOLUME 11.1 fl (7.2-11.7); MONO # 1.4 K/uL (0.0-0.8); MONO % 7.1 % (0.0-10.0); NEUT # 16.3 K/uL (1.8-7.0); NEUT % 83.3 % (50.0-75.0); NRBC % 0.4 % (0.0-0.0); PLATELET COUNT 175 K/uL (130-400); WHITE BLOOD COUNT 19.5 K/uL (4.8-10.8)
[2017-06-12 20:53] LABS: TROPONIN I 0.04 ng/mL (0.00-0.120)
[2017-06-12 20:58] LABS: PARTIAL THROMBOPLASTIN TIME 21.6 Seconds (25.6-37.1)
[2017-06-12] MEDS ORDERED: Iohexol 240 (50 ml) PO STA (21:22)
[2017-06-12] MEDS ORDERED: Pantoprazole 40 MG in Sodium Chloride 0.9% 100 ML IVPB STA (21:25)
[2017-06-12] MEDS ORDERED: Iohexol 240 (50 ml) ONE (21:29)
[2017-06-12] MEDS ORDERED: Pantoprazole 40 MG in Sodium Chloride 0.9% 100 ML IVPB ONE (21:30)
--- NOTE | 2017-06-12 21:41 | CP.PCM.CON ---
History of Present Illness - History of Present Illness History of Present Illness: CC: Hematemesis, GIB (Most information gathered from chart and ER staff as patient cannot provide much history) HPI: This is an 87 y/o male with MHx significant for ?A fib, CVA in the past, and HLD who comes in from [facility] with syncope followed by episodes of coffee ground emesis. Syncopal episode occurred while patient was seated, and lasted for a few seconds. Last episode emesis was 1730. Patient is not able to offer any further information. ROS: limited because patient unable to provide much information MHx: A fib, CVA in past, HLD SHx: none Allergies: NKDA Medications: As per med rec Family Hx: Reviewed in chart, and no relevant findings from previous admissions Social Hx: Currently in [facility], no tobacco, no EtOH Surrogate Dec Maker: Son Past Patient History - Past Medical History & Family History Past Medical History?: Yes - Past Social History Smoking Status: Never Smoked - CARDIAC Hx Congestive Heart Failure: No Hx Hypercholesterolemia: Yes Hx Hypertension: Yes - PULMONARY Hx Chronic Obstructive Pulmonary Disease (COPD): No - NEUROLOGICAL Hx Transient Ischemic Attacks (TIA): Yes (1 month ago) - HEENT Hx HEENT Problems: No - RENAL Hx Chronic Kidney Disease: No - ENDOCRINE/METABOLIC Hx Hypothyroidism: No - HEMATOLOGICAL/ONCOLOGICAL Hx Human Immunodeficiency Virus (HIV): No - INTEGUMENTARY Hx Dermatological Problems: No - MUSCULOSKELETAL/RHEUMATOLOGICAL Hx Arthritis: No Hx Rheumatoid Arthritis: No - GASTROINTESTINAL Hx Gastrointestinal Disorders: Yes Other/Comment: Pt had abdominal surgery in the past that resulted in ventral hernia (?) per family - GENITOURINARY/GYNECOLOGICAL Hx Genitourinary Disorders: Yes - PSYCHIATRIC Hx Anxiety: No Hx Substance Use: No - SURGICAL HISTORY Hx Surgeries: Yes Hx Joint Replacement: Yes (R THR 2010) Other/Comment: Abdominal surgery. Ventral Hernia repair 1.5 years ago in [place]. prostate ca removal - ANESTHESIA Hx Anesthesia: Yes Hx Anesthesia Reactions: No Hx Malignant Hyperthermia: No Meds Allergies/Adverse Reactions: Allergies Allergy/AdvReac Type Severity Reaction Status Date / Time No Known Allergies Allergy Verified 10/10/15 18:03 - Medications Medications: Current Medications Sodium Chloride (Sodium Chloride 0.9%) 1,000 mls @ 125 mls/hr IV .Q8H STA Stop: 06/13/17 02:51 Last Admin: 06/12/17 20:33 Dose: 125 mls/hr Pantoprazole Sodium 40 mg/ (Sodium Chloride) 100 mls @ 20 mls/hr IVPB STAT STA PRN Reason: 8 MG/HR Stop: 06/13/17 02:24 Physical Exam - Constitutional Appears: Chronically Ill - Head Exam Head Exam: ATRAUMATIC, NORMOCEPHALIC - Eye Exam Eye Exam: EOMI, PERRL - ENT Exam ENT Exam: Mucous Membranes Dry - Neck Exam Neck exam: Positive for: Full Rom - Respiratory Exam Respiratory Exam: Clear to Auscultation Bilateral, NORMAL BREATHING PATTERN - Cardiovascular Exam Cardiovascular Exam: +S1, +S2 - GI/Abdominal Exam GI & Abdominal Exam: Normal Bowel Sounds, Soft - Extremities Exam Extremities exam: Positive for: full ROM, normal inspection - Neurological Exam Additional comments: awake, alert, responsive; not really able to provide much in answer to questions - Skin Skin Exam: Dry, Warm Results - Vital Signs Recent Vital Signs: Last Vital Signs Temp 98.7 F 06/12/17 18:39 Pulse 78 06/12/17 18:39 Resp 18 06/12/17 18:39 BP 120/55 L 06/12/17 18:39 Pulse Ox 100 06/12/17 21:41 - Labs Result Diagrams: 06/12/17 20:25 06/12/17 20:25 - EKG Data EKG comments: Pending - Imaging and Cardiology CT scan - abdomen Status: Pending Assessment & Plan (1) Upper GI bleed Assessment and Plan: 87 y/o male with UGIB in the setting of multiple blood thinning agents -- ASA, Plavix, Lovenox. -Admit ICU -NPO -Hold all blood thinning/antiplatelet agents -Protonix bolus of 80 mg + 8 mg/hr gtt -GI consult for AM (notified) -No DVT PPx for now Status: Acute (2) Atrial flutter Status: Acute (3) DVT prophylaxis Status: Acute (4) Syncope Status: Acute
[2017-06-12 21:47] LABS: NEUTROPHIL 81 % (42-75); TOTAL CELLS COUNTED 100
[2017-06-12] MEDS ORDERED: Pantoprazole 40 MG in Sodium Chloride 0.9% 100 ML IVPB SCH (22:00)
[2017-06-12] MEDS ORDERED: Sodium Chloride 0.9% 50 ML IV ONE (23:12)
[2017-06-12] MEDS ORDERED: Iohexol 300 100 ML IJ ONE (23:12)
--- NOTE | 2017-06-13 00:24 | CT ---
EXAM: CT Head Without Intravenous Contrast CLINICAL HISTORY: 87 years old, male; Pain; Headache; Tension; Additional info: Syncope TECHNIQUE: Axial computed tomography images of the head/brain without intravenous contrast. All CT scans at this facility use one or more dose reduction techniques, viz.: automated exposure control; ma/kV adjustment per patient size (including targeted exams where dose is matched to indication; i.e. head); or iterative reconstruction technique. Coronal and sagittal reformatted images were created and reviewed. COMPARISON: CT - HEAD W/O CONTRAST 06/05/2017 5:49:44 PM FINDINGS: Brain: Bilateral white matter changes. This is nonspecific and may include microangiopathic disease, small lacunae of indeterminate chronicity, chronic infarcts and/or encephalomalacia. Evidence of old lacunae. 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 No hemorrhage. No edema. Ventricles: No hydrocephalus. Cavum vellum interpositum. Bones: Skull is intact. Sinuses: No acute sinusitis. Mastoid air cells: No mastoid effusion. IMPRESSION: No CT evidence of acute intracranial abnormality. Chronic changes as above.
--- NOTE | 2017-06-13 00:32 | CT ---
EXAM: CT Abdomen and Pelvis With Intravenous Contrast CLINICAL HISTORY: 87 years old, male; Pain; Abdominal pain; Generalized; Additional info: Abd pain, gib, leukocytosis TECHNIQUE: Axial computed tomography images of the abdomen and pelvis with intravenous contrast. All CT scans at this facility use one or more dose reduction techniques, viz.: automated exposure control; ma/kV adjustment per patient size (including targeted exams where dose is matched to indication; i.e. head); or iterative reconstruction technique. Coronal and sagittal reformatted images were created and reviewed. CONTRAST: 95 mL of [id number] administered intravenously. COMPARISON: CT - ABD PELVIS W/O PO OR 06/05/2017 7:35:10 PM FINDINGS: Small right effusion. Trace left effusion. Bilateral atelectasis. Again noted is masslike density at the left lung base measuring approximately 5 cm in maximal dimension, question atelectasis. The liver, spleen, pancreas and adrenal glands demonstrate no acute abnormalities. Cholelithiasis. Again noted is subtle infiltration of adjacent fat, question pericholecystic inflammation. The kidneys are symmetric with no evidence of hydronephrosis. 2.7 cm hypoattenuating lesion in the left kidney likely representing cyst, incompletely characterized. Additional subcentimeter hypoattenuating lesion in the left kidney. Atherosclerosis. Infrarenal aorta measures up to 2.9 cm. Enteric contrast in the visualized esophagus. Hiatal hernia. No small bowel obstruction. Retained fecal material in the colon. Diverticulosis. Right lateral abdominal wall hernia. Arthroplasty right hip. Degenerative changes. IMPRESSION: Small right effusion. Trace left effusion. Bilateral atelectasis. Again noted is masslike density at the left lung base measuring approximately 5 cm in maximal dimension, question atelectasis. Followup recommended. Cholelithiasis. Again noted is subtle infiltration of adjacent fat, question pericholecystic inflammation. Enteric contrast in the visualized esophagus. Hiatal hernia. Retained fecal material in the colon. Diverticulosis. Right lateral abdominal wall hernia. Please see additional details/findings as above. Correlate clinically. Followup as warranted.
[2017-06-13 00:41] LABS: RBC URINE 2 /hpf (0-3); URINE BILIRUBIN NEGATIVE (NEGATIVE); URINE BLOOD NEGATIVE (NEGATIVE); URINE COLOR YELLOW (YELLOW); URINE GLUCOSE (UA) NEG (Normal); URINE KETONE NEGATIVE (NEGATIVE); URINE LEUKOCYTE ESTERASE NEG Leu/uL (Negative); URINE PROTEIN NEGATIVE (NEGATIVE); URINE UROBILINOGEN 0.2-1.0 mg/dL (0.2-1.0); WBC URINE < 1 /hpf (0-5)
[2017-06-13] MEDS: Pantoprazole 40 MG in Sodium Chloride 0.9% 100 ML IVPB SCH ×4 (03:43→23:09)
[2017-06-13] MEDS: Sodium Chloride 0.9% 1,000 ML IV SCH ×2 (06:09→19:35)
--- NOTE | 2017-06-13 07:50 | CARD ---
APPROVED REPORT EKG Measurement Heart [id number] <Conclusion> Atrial flutter with variable AV block ST & T wave abnormality, consider inferior ischemia ST & T wave abnormality, consider anterior ischemia Abnormal ECG
--- NOTE | 2017-06-13 08:28 | RAD ---
HISTORY: Syncope, vomiting. COMPARISON: 06/05/2017. FINDINGS: LUNGS: No active pulmonary disease. PLEURA: No significant pleural effusion identified, no pneumothorax apparent. CARDIOVASCULAR: No radiographic findings to suggest acute or significant cardiovascular disease. OSSEOUS STRUCTURES: No significant abnormalities. VISUALIZED UPPER ABDOMEN: Normal. OTHER FINDINGS: None. IMPRESSION: No active disease. No significant interval change compared to the prior examination(s).
--- NOTE | 2017-06-13 08:41 | CP.PCM.HP ---
History of Present Illness - History of Present Illness History of Present Illness: pt admitted for gibleed after vomiting coffee ground emesis. no f/c, n/v/d at present. somnolent. bw noted w hgb 7 and elev bun/lft. pt was on asa/plavix for cad/cva and lovenox for dvt ppx w/ h/o afib rec'd 2 units prbc and is on protonix gtt Present on Admission - Present on Admission Any Indicators Present on Admission: No Review of Systems - Gastrointestinal Gastrointestinal: As Per HPI, Hematemesis, Hematochezia Past Patient History - Past Medical History & Family History Past Medical History?: Yes - Past Social History Smoking Status: Never Smoked - CARDIAC Hx Congestive Heart Failure: No Hx Hypercholesterolemia: Yes Hx Hypertension: Yes - PULMONARY Hx Chronic Obstructive Pulmonary Disease (COPD): No - NEUROLOGICAL Hx Transient Ischemic Attacks (TIA): Yes (1 month ago) - HEENT Hx HEENT Problems: No - RENAL Hx Chronic Kidney Disease: No - ENDOCRINE/METABOLIC Hx Hypothyroidism: No - HEMATOLOGICAL/ONCOLOGICAL Hx Human Immunodeficiency Virus (HIV): No - INTEGUMENTARY Hx Dermatological Problems: No - MUSCULOSKELETAL/RHEUMATOLOGICAL Hx Arthritis: No Hx Falls: No Hx Rheumatoid Arthritis: No - GASTROINTESTINAL Hx Gastrointestinal Disorders: Yes Other/Comment: Pt had abdominal surgery in the past that resulted in ventral hernia (?) per family - GENITOURINARY/GYNECOLOGICAL Hx Genitourinary Disorders: Yes - PSYCHIATRIC Hx Anxiety: No Hx Substance Use: No - SURGICAL HISTORY Hx Surgeries: Yes Hx Joint Replacement: Yes (R THR 2010) Other/Comment: Abdominal surgery. Ventral Hernia repair 1.5 years ago in [place]. prostate ca removal - ANESTHESIA Hx Anesthesia: Yes Hx Anesthesia Reactions: No Hx Malignant Hyperthermia: No Meds Allergies/Adverse Reactions: Allergies Allergy/AdvReac Type Severity Reaction Status Date / Time No Known Allergies Allergy Verified 10/10/15 18:03 Physical Exam - Constitutional Appears: Non-toxic, No Acute Distress - Head Exam Head Exam: ATRAUMATIC, NORMAL INSPECTION, NORMOCEPHALIC - Eye Exam Eye Exam: EOMI, Normal appearance, PERRL Pupil Exam: NORMAL ACCOMODATION, PERRL - ENT Exam ENT Exam: Mucous Membranes Moist, Normal Exam - Neck Exam Neck exam: Positive for: Normal Inspection - Respiratory Exam Respiratory Exam: Clear to Auscultation Bilateral, NORMAL BREATHING PATTERN - Cardiovascular Exam Cardiovascular Exam: REGULAR RHYTHM, RRR, +S1, +S2 - GI/Abdominal Exam GI & Abdominal Exam: Normal Bowel Sounds, Soft. absent: Tenderness - Extremities Exam Extremities exam: Positive for: full ROM, normal capillary refill, normal inspection, pedal pulses present - Back Exam Back exam: NORMAL INSPECTION, vertebral tenderness - Neurological Exam Neurological exam: Abnormal Gait, CN II-XII Intact, Reflexes Normal - Psychiatric Exam Psychiatric exam: Normal Affect, Normal Mood - Skin Skin Exam: Dry, Intact, Normal Color, Warm Results - Vital Signs Recent Vital Signs: Last Vital Signs Temp 98.7 F 06/13/17 04:00 Pulse 60 06/13/17 06:00 Resp 17 06/13/17 06:00 BP 92/48 L 06/13/17 06:00 Pulse Ox 100 06/13/17 06:00 - Labs Result Diagrams: 06/12/17 20:25 06/12/17 20:25 Labs: Laboratory Results - last 24 hr 06/13/17 00:30 Urine Color Yellow Urine Clarity Clear Urine pH 5.0 Ur Specific [place] 1.028 Urine Protein Negative Urine Glucose (UA) Neg Urine Ketones Negative Urine Blood Negative Urine Nitrate Negative Urine Bilirubin Negative Urine Urobilinogen 0.2-1.0 Ur Leukocyte Esterase Neg Urine RBC (Auto) 2 Urine Microscopic WBC < 1 Ur Squamous Epith Cells < 1 Assessment & Plan (1) Anemia Assessment and Plan: 2 units prbc, trend h/h Status: Acute (2) GIB (gastrointestinal bleeding) Assessment and Plan: protonix gtt gi transfusion support Status: Acute (3) DVT prophylaxis Assessment and Plan: scd and ae hose no lovenox/plavix/asa r/t gi bleed Status: Acute (4) Dehydration Assessment and Plan: ivf r/t gi bleed trending cmp Status: Acute Decision To Admit - Pt Status Changed To: Hospital Disposition Of: Inpatient - Admit Certification Admit to Inpatient:: After my assessment, the patient will require hospitalization for at least two midnights. This is because of the severity of symptoms shown, intensity of services needed, and/or the medical risk in this patient being treated as an outpatient. - . Bed Request Type: Intensive Care Admitting Physician: Tyler Rodgers
[2017-06-13] MEDS ORDERED: Pneumococcal 23-Valent Vaccine IM ONE (10:00)
--- NOTE | 2017-06-13 10:23 | CP.CCUPN ---
CCU Subjective - Physician Review Subjective (Free Text): Awake and alert, no distress, s/p ii units PRBCs overnight. Afebrile, BP levels still borderline, with systolic approx. 95-90. No tachycardia noted; in A Flutter with 5:1 conduction. SPO2 100% on nasal cannula. Remains on NSS at 125ml /hr. and Protonix drip. Denies any dizziness, headaches, palpitations, chest discomfort, sob or nausea. No further emesis noted. Remains NPO. Other vitals and I/O's reviewed. No fever spikes noted. ROS: unobtainable from intubated patient. No other pertinent negs or positives on 10+ system review. PMSFH: All Nursing and physician documentation reviewed to date; no new pertinent info noted relevant to current medical problems. MAJOR PROBLEMS: 1. s/p Syncope 2 Hypovolemia 2. UGIB 3. Acute Anemia 4. Azotemia / dehydration 5. Chronic A Flutter PLAN: 1. Awaiting repeat HGB post PRBC transfusion. Check stools for FOBT. Repeat serum Lipase, if more elevated, do US GB/Liver/Pancreas. 2. IVF hydration. 3. GI eval for appropriateness of endoscopy. 4. CT brain negative. 5. All anticoag and anti-platelet meds remain on hold. 6. Hold Norvasc. CCU Objective - Vital Signs / Intake & Output Intake and Output (Last 8hrs): Intake & Output 06/12/17 06/13/17 06/13/17 22:59 06:59 14:59 Intake Total 1505 Output Total 400 Balance 1105 Intake: IV 805 Blood Product 700 Output: Urine 400 Urine, Voided 400 - Physical Exam Head: Positive for: Normocephalic Pupils: Positive for: PERRL Extroacular Muscles: Positive for: EOMI Conjunctiva: Positive for: Normal. Negative for: Icteric Mouth: Positive for: Moist Mucous Membranes Neck: Negative for: JVD Respiratory/Chest: Positive for: Decreased Breath Sounds. Negative for: Accessory Muscle Use, Wheezes Cardiovascular: Positive for: Regular Rate and Rhythm, Bradycardic. Negative for: Murmurs, Rub Abdomen: Positive for: Normal Bowel Sounds. Negative for: Tenderness, Distention Lower Extremity: Positive for: Edema (trace), NORMAL PULSES. Negative for: CALF TENDERNESS, Cyanosis Neurological: Positive for: GCS=15, Motor Func Grossly Intact, Normal Sensory Function Skin: Positive for: Warm. Negative for: Rashes - Medications Active Medications: Active Medications Generic Name Dose Route Start Last Admin Trade Name Freq PRN Reason Stop Dose Admin Pantoprazole Sodium 40 mg/ 100 mls @ 20 mls/hr 06/13/17 03:32 06/13/17 03:43 Sodium Chloride IVPB 06/13/17 13:31 20 mls/hr Q5H NANCY Administration 8 MG/HR Sodium Chloride 1,000 mls @ 125 mls/hr 06/13/17 06:15 06/13/17 06:09 Sodium Chloride 0.9% IV 06/15/17 06:06 125 mls/hr .Q8H NANCY Administration Morphine Sulfate 1 mg 06/12/17 23:01 Morphine IVP Q4 PRN Pain, moderate (4-7) Ondansetron HCl 4 mg 06/12/17 21:44 Zofran Inj IVP Q6H PRN Nausea/Vomiting - Patient Studies Lab Studies: Lab Studies 06/13/17 Range/Units 00:30 Urine Color Yellow (YELLOW) Urine Clarity Clear (Clear) Urine pH 5.0 (5.0-8.0) Ur Specific [place] 1.028 (1.003-1.030) Urine Protein Negative (NEGATIVE) mg/dL Urine Glucose (UA) Neg (Normal) mg/dL Urine Ketones Negative (NEGATIVE) mg/dL Urine Blood Negative (NEGATIVE) Urine Nitrate Negative (NEGATIVE) Urine Bilirubin Negative (NEGATIVE) Urine Urobilinogen 0.2-1.0 (0.2-1.0) mg/dL Ur Leukocyte Esterase Neg (Negative) [place]/uL Urine RBC (Auto) 2 (0-3) /hpf Urine Microscopic WBC < 1 (0-5) /hpf Ur Squamous Epith Cells < 1 (0-5) /hpf Laboratory Results - last 24 hr 06/13/17 00:30 Urine Color Yellow Urine Clarity Clear Urine pH 5.0 Ur Specific [place] 1.028 Urine Protein Negative Urine Glucose (UA) Neg Urine Ketones Negative Urine Blood Negative Urine Nitrate Negative Urine Bilirubin Negative Urine Urobilinogen 0.2-1.0 Ur Leukocyte Esterase Neg Urine RBC (Auto) 2 Urine Microscopic WBC < 1 Ur Squamous Epith Cells < 1 Critical Care Progress Note - Prophylaxis GI Prophylaxis GI: PPI - Prophylaxis DVT Prophylaxis DVT: SCDs - Nutrition Nutrition: Nutrition Category Date Time Status NPO Diet [DIET] Diets 06/12/17 Breakfast Active
[2017-06-13 10:32] LABS: HEMATOCRIT 22.8 % (35.0-51.0); MEAN CELL VOLUME 92.2 fl (80.0-94.0); MEAN CORPUSCULAR HEMOGLOBIN 30.4 pg (27.0-31.0); RED CELL DISTRIBUTION WIDTH 15.2 % (11.5-14.5)
[2017-06-13 10:41] LABS: ALB/GLOB RATIO 0.8 (1.0-2.1); BILIRUBIN,TOTAL 1.2 mg/dl (0.2-1.3); CALCIUM 7.8 mg/dL (8.4-10.2); TOTAL PROTEIN 5.3 G/DL (6.3-8.2)
[2017-06-13 21:24] LABS: MEAN CELL VOLUME 90.3 fl (80.0-94.0); MEAN CORPUSCULAR HEMOGLOBIN 30.1 pg (27.0-31.0); MEAN CORPUSCULAR HGB CONC 33.3 g/dL (33.0-37.0); RED CELL DISTRIBUTION WIDTH 15.5 % (11.5-14.5); WHITE BLOOD COUNT 14.7 K/uL (4.8-10.8)
--- NOTE | 2017-06-14 01:56 | CON ---
DATE: 06/13/2017 REFERRING DOCTOR: Dr. Carranza. REASON FOR CONSULTATION: Coughing and emesis and anemia. HISTORY OF PRESENT ILLNESS: This is an [id number] with a history of cough and emesis. He comes in for vomiting x1 and at the detention, he is on aspirin, Plavix, and Lovenox. Denies any overt hematemesis or hematochezia. Currently lying in bed, comfortable, in no apparent distress. PAST MEDICAL HISTORY: As above. PAST SURGICAL HISTORY: As above. MEDICATIONS: Have been reviewed. REVIEW OF SYSTEMS: All other systems have been reviewed and negative apart from the HPI. PHYSICAL EXAMINATION: VITAL SIGNS: In the hospital were grossly remarkable. GENERAL: This is a pleasant elderly appearing male, lying in bed comfortable, in no apparent distress. HEENT: Head is normocephalic and atraumatic. Eyes, pupils are equally round and reactive to light bilaterally. No conjunctival pallor or icterus. NECK: Supple. Normal range of motion. No lymphadenopathy appreciated. LUNGS: Coarse breath sounds bilaterally. HEART: S1 and S2. Regular rate and rhythm. No murmurs appreciated. ABDOMEN: Soft and nontender. Bowel sounds present. No rebound. No guarding. RECTAL: Deferred. EXTREMITIES: Pulses felt bilaterally. SKIN: Warm, dry and intact. NEUROLOGIC: A and O x3. LABORATORY DATA: All labs have been reviewed. Radiology shows a CAT scan that shows left lung base mass, cholelithiasis, hiatal hernia with retained fecal material, right lateral abdominal wall hernia, mild pleural effusion. Labs include WBC 19.5, now down to 17.0; hemoglobin 7.1, after transfusion 7.5; platelet count is 135. INR is 1.1. BUN and creatinine are 128/4.5. AST and ALT 71 and 89.. ASSESSMENT AND PLAN: This is an 87-year-old man, likely polypharmacy with the anticoagulation. Recommend endoscopy when cleared by all services including Cardiology and Intensive Care Unit. Transfuse as needed. Proton pump inhibitor twice a day, monitored setting. Plan for endoscopy when clinically stable. Thank you for the consult. Nithin Resendiz MD/ PhD cc: [facility] # [id number]
[2017-06-14] MEDS: Pantoprazole 40 MG in Sodium Chloride 0.9% 100 ML IVPB SCH ×3 (02:12→12:50)
[2017-06-14] MEDS: Sodium Chloride 0.9% 1,000 ML IV SCH ×5 (02:15→21:02)
[2017-06-14 05:32] LABS: HEMATOCRIT 24.8 % (35.0-51.0); MEAN CELL VOLUME 91.3 fl (80.0-94.0); MEAN CORPUSCULAR HEMOGLOBIN 30.3 pg (27.0-31.0); MEAN CORPUSCULAR HGB CONC 33.1 g/dL (33.0-37.0); RED CELL DISTRIBUTION WIDTH 15.6 % (11.5-14.5); WHITE BLOOD COUNT 11.8 K/uL (4.8-10.8)
[2017-06-14 05:38] LABS: CALCIUM 7.8 mg/dL (8.4-10.2); POTASSIUM 4.3 MMOL/L (3.6-5.0)
--- NOTE | 2017-06-14 06:25 | CP.PCM.CON ---
History of Present Illness - History of Present Illness History of Present Illness: I was asked to evaluate patient by Dr Rodgers and /mirtha Carranza APN. Patient is a 87 year old male with a PMH HTN, CVA, atrial flutter (not on anticoagulation due to falls risk) who presents with GI bleed. THe patient was previously admitted for management of syncope and rhabdomyolysis. He was found on the floor of his home for an unknown period of time. The patient was found to be in rate controlled atrial fluttter. Echocardiogram revealed normal left ventricular systolic function. The patient was not cardioverted or referred for ablation due to the need for anticaogulation post procedure and patient was deemed not an appropriate candidate. He was sent to rehab but now admitted with GI bleed. He is resting comfortably in the ICU. Review of Systems - Constitutional Constitutional: absent: As Per HPI, Anorexia, Chills, Daytime Sleepiness, Excessive Sweating, Fatigue, Fever, Frequent Falls, Headache, Increased Appetite , Lethargy, Malaise, Night Sweats, Snoring, Sleep Apnea, Weight Gain, Weight Loss, Weakness, Other - EENT Eyes: absent: As Per HPI, Blind Spots, Blurred Vision, Change in Vision, Decreased Night Vision, Diplopia, Discharge, Dry Eye, Exophthalmos, Floaters, Irritation, Itchy Eyes, Loss of Peripheral Vision, Pain, Photophobia, Requires Corrective Lenses, Sees Flashes, Spots in Vision, Tunnel Vision, Other Visual Disturbances, Loss of Vision, Other Ears: absent: As Per HPI, Decreased Hearing, Ear Discharge, Ear Pain, Tinnitus, Abnormal Hearing, Disequilibrium, Dizziness, Other Nose/Mouth/Throat: absent: As Per HPI, Epistaxis, Nasal Congestion, Nasal Discharge, Nasal Obstruction, Nasal Trauma, Nose Pain, Post Nasal Drip, Sinus Pain, Sinus Pressure, Bleeding Gums, Change in Voice, Dental Pain, Dry Mouth, Dysphagia, Halitosis, Hoarsness, Lip Swelling, Mouth Lesions, Mouth Pain, Odynophagia, Sore Throat, Throat Swelling, Tongue Swelling, Facial Pain, Neck Pain, Neck Mass, Other - Cardiovascular Cardiovascular: absent: As Per HPI, Acrocyanosis, Chest Pain, Chest Pain at Rest , Chest Pain with Activity, Claudication, Diaphoresis, Dyspnea, Dyspnea on Exertion, Edema, Irregular Heart Rhythm, Pain Radiating to Arm/Neck/Jaw, Leg Edema, Leg Ulcers, Lightheadedness, Orthopnea, Palpitations, Paroxysmal Nocturnal Dyspnea, Pedal Edema, Radiating Pain, Rapid Heart Rate, Slow Heart Rate, Syncope, Other - Respiratory Respiratory: absent: As Per HPI, Cough, Dyspnea, Hemoptysis, Dyspnea on Exertion , Wheezing, Snoring, Stridor, Pain on Inspiration, Chest Congestion, Excessive Mucous Production, Change in Mucous Color, Pain with Coughing, Other - Gastrointestinal Gastrointestinal: absent: As Per HPI, Abdominal Pain, Belching, Bloating, Change in Bowel Habits, Change in Stool Character, Coffee Ground Emesis, Constipation, Cramping, Diarrhea, Dyspepsia, Dysphagia, Early Satiety, Excessive Flatus, Fecal Incontinence, Heartburn, Hematemesis, Hematochezia, Loose Stools, Melena, Nausea, Odynophagia, Temesmus, Vomiting, Other - Genitourinary Genitourinary: absent: As Per HPI, Change in Urinary Stream, Difficulty Urinating, Dysuria, Flank Pain, Hematuria, Pyuria, Nocturia, Urinary Incontinence, Urinary Frequency, Urinary Hesitance, Urinary Urgency, Voiding Freq/Small Amts, Freq UTI, Hx Renal/Bladder Calculi, Hx /Renal Surgery, Bladder Distension, Other - Musculoskeletal Musculoskeletal: absent: As Per HPI, Abnormal Gait, Arthralgias, Atrophy, Back Pain, Deformity, Joint Swelling, Limited Range of Motion, Loss of Height, Muscle Cramps, Muscle Weakness, Myalgias, Neck Pain, Numbness, Radiating Pain into Limb, Stiffness, Tingling, Other - Integumentary Integumentary: absent: As Per HPI, Acne, Alopecia, Bleeding Lesions, Change in Hair, Change in Nails, Change in Pigmentation, Changing Lesions, Dry Skin, Erythema, Furuncle, Hirsutism, Lesions, New Lesions, Non-Healing Lesions, Photosensitivity, Pruritus, Rash, Skin Pain, Skin Ulcer, Sores, Striae, Swelling , Unusual Bruising, Wounds, Jaundice, Other - Neurological Neurological: absent: As Per HPI, Abnormal Gait, Abnormal Hearing, Abnormal Movements, Abnormal Speech, Behavioral Changes, Burning Sensations, Confusion, Convulsions, Disequilibrium, Dizziness, Numbness, Focal Weakness, Frequent Falls , Headaches, Lack of Coordination, Loss of Vision, Memory Loss, Paresthesias, Radicular Pain, Restless Legs, Sensory Deficit, Syncope, Tingling, Tremor, Vertigo, Weakness, Other Visual Disturbances, Other - Psychiatric Psychiatric: absent: As Per HPI, Abnormal Sleep Pattern, Anhedonia, Anxiety, Auditory Hallucinations, Behavioral Changes, Change in Appetite, Change in Libido, Confusion, Depression, Difficulty Concentrating, Hallucinations, Homicidal Ideation, Hopelessness, Irritability, Memory Loss, Mood Swings, Panic Attacks, Paranoia, Suicidal Ideation, Visual Hallucinations, Tactile Hallucinations, Other - Endocrine Endocrine: absent: As Per HPI, Change in Body Appearance, Change in Libido, Cold Intolorance, Deepening of Voice, Excessive Sweating, Fatigue, Flushing, Heat Intolorance, Increase in Ring/Shoe/Hat Size, Palpitations, Polydipsia, Polyphagia, Polyuria, Other - Hematologic/Lymphatic Hematologic: absent: As Per HPI, Easy Bleeding, Easy Bruising, Lymphadenopathy, Other Past Patient History - Past Medical History & Family History Past Medical History?: Yes - Past Social History Smoking Status: Never Smoked - CARDIAC Hx Congestive Heart Failure: No Hx Hypercholesterolemia: Yes Hx Hypertension: Yes - PULMONARY Hx Chronic Obstructive Pulmonary Disease (COPD): No - NEUROLOGICAL Hx Transient Ischemic Attacks (TIA): Yes (1 month ago) - HEENT Hx HEENT Problems: No - RENAL Hx Chronic Kidney Disease: No - ENDOCRINE/METABOLIC Hx Hypothyroidism: No - HEMATOLOGICAL/ONCOLOGICAL Hx Human Immunodeficiency Virus (HIV): No - INTEGUMENTARY Hx Dermatological Problems: No - MUSCULOSKELETAL/RHEUMATOLOGICAL Hx Arthritis: No Hx Falls: No Hx Rheumatoid Arthritis: No - GASTROINTESTINAL Hx Gastrointestinal Disorders: Yes Other/Comment: Pt had abdominal surgery in the past that resulted in ventral hernia (?) per family - GENITOURINARY/GYNECOLOGICAL Hx Genitourinary Disorders: Yes - PSYCHIATRIC Hx Anxiety: No Hx Substance Use: No - SURGICAL HISTORY Hx Surgeries: Yes Hx Joint Replacement: Yes (R THR 2010) Other/Comment: Abdominal surgery. Ventral Hernia repair 1.5 years ago in [place]. prostate ca removal - ANESTHESIA Hx Anesthesia: Yes Hx Anesthesia Reactions: No Hx Malignant Hyperthermia: No Meds Allergies/Adverse Reactions: Allergies Allergy/AdvReac Type Severity Reaction Status Date / Time No Known Allergies Allergy Verified 10/10/15 18:03 - Medications Medications: Current Medications Sodium Chloride (Sodium Chloride 0.9%) 1,000 mls @ 125 mls/hr IV .Q8H NANCY Stop: 06/15/17 06:06 Last Admin: 06/14/17 02:15 Dose: 125 mls/hr Pantoprazole Sodium 40 mg/ (Sodium Chloride) 100 mls @ 20 mls/hr IVPB Q5H NANCY PRN Reason: 8 MG/HR Stop: 06/15/17 16:16 Last Admin: 06/14/17 02:12 Dose: 20 mls/hr Morphine Sulfate (Morphine) 1 mg IVP Q4 PRN PRN Reason: Pain, moderate (4-7) Last Admin: 06/13/17 23:13 Dose: 1 mg Ondansetron HCl (Zofran Inj) 4 mg IVP Q6H PRN PRN Reason: Nausea/Vomiting Physical Exam - Constitutional Appears: Non-toxic - Head Exam Head Exam: NORMAL INSPECTION - Eye Exam Eye Exam: Normal appearance - ENT Exam ENT Exam: Mucous Membranes Moist - Neck Exam Neck exam: Positive for: Full Rom - Respiratory Exam Respiratory Exam: NORMAL BREATHING PATTERN - Cardiovascular Exam Cardiovascular Exam: Irregular Rhythm - GI/Abdominal Exam GI & Abdominal Exam: Normal Bowel Sounds - Rectal Exam Rectal Exam: Deferred - Extremities Exam Extremities exam: Negative for: pedal edema - Back Exam Back exam: NORMAL INSPECTION - Neurological Exam Neurological exam: Alert, Oriented x3 - Psychiatric Exam Psychiatric exam: Normal Affect - Skin Skin Exam: Normal Color Results - Vital Signs Recent Vital Signs: Last Vital Signs Temp 98.2 F 06/14/17 03:59 Pulse 58 L 06/14/17 03:59 Resp 15 06/14/17 03:59 BP 105/50 L 06/14/17 03:59 Pulse Ox 98 06/14/17 03:59 - Labs Result Diagrams: 06/14/17 04:20 06/14/17 04:20 Labs: Laboratory Results - last 24 hr 06/13/17 06/13/17 06/13/17 10:15 10:15 21:10 WBC 17.0 H 14.7 H RBC 2.47 L 2.88 L Hgb 7.5 L 8.7 L Hct 22.8 L 26.0 L MCV 92.2 90.3 MCH 30.4 30.1 MCHC 33.0 33.3 RDW 15.2 H 15.5 H Plt Count 135 127 L Sodium 133 Potassium 5.0 Chloride 108 H Carbon Dioxide 19 L Anion Gap 11 BUN 114 H* Creatinine 1.5 Est GFR ( Amer) 54 Est GFR (Non-Af Amer) 44 Random Glucose 112 H Calcium 7.8 L Total Bilirubin 1.2 AST 50 ALT 88 H Alkaline Phosphatase 43 Total Protein 5.3 L Albumin 2.4 L Globulin 2.9 Albumin/Globulin Ratio 0.8 L 06/14/17 06/14/17 04:20 04:20 WBC 11.8 H RBC 2.72 L Hgb 8.2 L Hct 24.8 L MCV 91.3 MCH 30.3 MCHC 33.1 RDW 15.6 H Plt Count 119 L Sodium 138 Potassium 4.3 Chloride 113 H Carbon Dioxide 20 L Anion Gap 9 L BUN 79 H Creatinine 1.4 Est GFR ( Amer) 58 Est GFR (Non-Af Amer) 48 Random Glucose 97 Calcium 7.8 L Total Bilirubin AST ALT Alkaline Phosphatase Total Protein Albumin Globulin Albumin/Globulin Ratio - EKG Data EKG Interpreted by: Myself - EKG Data EKG Specific Queries Rhythm: Atrial Flutter Assessment & Plan (1) GIB (gastrointestinal bleeding) Assessment and Plan: GI evalaution. Patient is not on anticoagulant therapy. holding antiplatelet therapy. Status: Acute (2) Atrial flutter Assessment and Plan: will continue medical therapy. Patient is rate controlled. not on anticaogulation. Status: Acute
--- NOTE | 2017-06-14 07:41 | CP.PCM.PCO ---
Physician Communication Note - Physician Communication Note Physician Communication Note: no cardiac contraindication to EGD/colonoscopy
--- NOTE | 2017-06-14 08:28 | CP.PCM.PN ---
Subjective - Date & Time of Evaluation Date of Evaluation: 06/14/17 Time of Evaluation: 08:27 - Subjective Subjective: pt doing well, no f/c, n/v/d. asking for food. no abd pain. for egd today- cleared by cardio nsr on monitor hgb now 8.2 after 4 units prbc Objective - Vital Signs/Intake and Output Vital Signs (last 24 hours): Temp Pulse Resp BP Pulse Ox 98.2 F 57 L 17 102/52 L 97 06/14/17 03:59 06/14/17 06:00 06/14/17 06:00 06/14/17 06:00 06/14/17 06:00 Intake and Output: 06/14/17 06/14/17 06:59 18:59 Intake Total 1740 Output Total 1600 Balance 140 - Medications Medications: Current Medications Sodium Chloride (Sodium Chloride 0.9%) 1,000 mls @ 125 mls/hr IV .Q8H NANCY Stop: 06/15/17 06:06 Last Admin: 06/14/17 02:15 Dose: 125 mls/hr Pantoprazole Sodium 40 mg/ (Sodium Chloride) 100 mls @ 20 mls/hr IVPB Q5H NANCY PRN Reason: 8 MG/HR Stop: 06/15/17 16:16 Last Admin: 06/14/17 02:12 Dose: 20 mls/hr Morphine Sulfate (Morphine) 1 mg IVP Q4 PRN PRN Reason: Pain, moderate (4-7) Last Admin: 06/13/17 23:13 Dose: 1 mg Ondansetron HCl (Zofran Inj) 4 mg IVP Q6H PRN PRN Reason: Nausea/Vomiting - Labs Labs: 06/14/17 04:20 06/14/17 04:20 PT 11.6 Seconds (9.8-13.1) 06/12/17 20:25 INR 1.1 (0.9-1.2) 06/12/17 20:25 APTT 21.6 Seconds (25.6-37.1) L 06/12/17 20:25 - Constitutional Appears: Well, Non-toxic, No Acute Distress - Head Exam Head Exam: ATRAUMATIC, NORMAL INSPECTION, NORMOCEPHALIC - Eye Exam Eye Exam: EOMI, Normal appearance, PERRL Pupil Exam: NORMAL ACCOMODATION, PERRL - ENT Exam ENT Exam: Mucous Membranes Moist, Normal Exam - Neck Exam Neck Exam: Full ROM, Normal Inspection. absent: Lymphadenopathy - Respiratory Exam Respiratory Exam: Clear to Ausculation Bilateral, NORMAL BREATHING PATTERN - Cardiovascular Exam Cardiovascular Exam: REGULAR RHYTHM, RRR, +S1, +S2. absent: Murmur - GI/Abdominal Exam GI & Abdominal Exam: Soft, Normal Bowel Sounds. absent: Tenderness - Extremities Exam Extremities Exam: Full ROM, Normal Capillary Refill, Normal Inspection. absent : Joint Swelling, Pedal Edema - Back Exam Back Exam: NORMAL INSPECTION - Neurological Exam Neurological Exam: Alert, Awake, CN II-XII Intact, Normal Gait, Oriented x3 - Psychiatric Exam Psychiatric exam: Normal Affect, Normal Mood - Skin Skin Exam: Dry, Intact, Normal Color, Warm Assessment and Plan (1) Anemia Status: Acute (2) GIB (gastrointestinal bleeding) Status: Acute (3) DVT prophylaxis Status: Acute (4) Dehydration Status: Acute - Assessment and Plan (Free Text) Assessment: (1) Anemia Assessment and Plan: 2 units prbc, trend h/h Status: Acute (2) GIB (gastrointestinal bleeding) Assessment and Plan: protonix gtt gi transfusion support egd today Status: Acute (3) DVT prophylaxis Assessment and Plan: scd and ae hose no lovenox/plavix/asa r/t gi bleed Status: Acute (4) Dehydration Assessment and Plan: ivf r/t gi bleed trending cmp Status: Acute
[2017-06-14] MEDS ORDERED: Benzocaine/Butamben/Tetracai 14-2-2% TOP Spray TOP ONE (12:49)
[2017-06-14] MEDS ORDERED: Sodium Chloride 0.9% 250 ML IV ONE (13:00)
[2017-06-14] MEDS ORDERED: Etomidate 20 mg/10ml Inj IV ONE (13:17)
--- NOTE | 2017-06-14 16:18 | CP.PCM.PN ---
Subjective - Date & Time of Evaluation Date of Evaluation: 06/14/17 Time of Evaluation: 15:30 - Subjective Subjective: Patient is s/p EGD. Objective - Vital Signs/Intake and Output Vital Signs (last 24 hours): Temp Pulse Resp BP Pulse Ox 97 F L 61 17 141/34 L 97 06/14/17 13:45 06/14/17 14:00 06/14/17 14:00 06/14/17 14:00 06/14/17 14:00 Intake and Output: 06/14/17 06/14/17 06:59 18:59 Intake Total 1740 1228 Output Total 1600 800 Balance 140 428 - Medications Medications: Current Medications Sodium Chloride (Sodium Chloride 0.9%) 1,000 mls @ 125 mls/hr IV .Q8H NANCY Stop: 06/15/17 06:06 Last Admin: 06/14/17 16:06 Dose: 125 mls/hr Morphine Sulfate (Morphine) 1 mg IVP Q4 PRN PRN Reason: Pain, moderate (4-7) Last Admin: 06/13/17 23:13 Dose: 1 mg Ondansetron HCl (Zofran Inj) 4 mg IVP Q6H PRN PRN Reason: Nausea/Vomiting Pantoprazole Sodium (Protonix Ec Tab) 40 mg PO Q12 NANCY - Labs Labs: 06/14/17 04:20 06/14/17 04:20 PT 11.6 Seconds (9.8-13.1) 06/12/17 20:25 INR 1.1 (0.9-1.2) 06/12/17 20:25 APTT 21.6 Seconds (25.6-37.1) L 06/12/17 20:25 - Constitutional Appears: Non-toxic - Head Exam Head Exam: NORMAL INSPECTION - Eye Exam Eye Exam: Normal appearance - ENT Exam ENT Exam: Mucous Membranes Moist - Neck Exam Neck Exam: Full ROM - Respiratory Exam Respiratory Exam: NORMAL BREATHING PATTERN - Cardiovascular Exam Cardiovascular Exam: Irregular Rhythm - GI/Abdominal Exam GI & Abdominal Exam: Normal Bowel Sounds - Rectal Exam Rectal Exam: Deferred - Extremities Exam Extremities Exam: absent: Pedal Edema - Back Exam Back Exam: NORMAL INSPECTION - Neurological Exam Neurological Exam: Alert - Psychiatric Exam Psychiatric exam: Normal Affect - Skin Skin Exam: Normal Color Assessment and Plan (1) GIB (gastrointestinal bleeding) Assessment & Plan: s/p EGD. not on anticoagulation. Status: Acute (2) Atrial flutter Assessment & Plan: rate controlled. Status: Acute
--- NOTE | 2017-06-14 17:20 | CP.CCUPN ---
CCU Subjective - Physician Review Events Since Last Encounter (Free Text): 06/14/17 17:06 The patient was Seen/interviewed and examined by me at the bedside during ICU round, Medical records reviewed and Management issues were discussed and formulated with the house staff. Awake, comfortable, NAD No N/Vomiting Alert, follows some commands, S/P total 4U packed RBC transfusion This morning labs showed small H/H drop 8.7/26-->8.2/24.8, no evidence of acute bleed. Pt Underwent endoscopy, showing no acute bleed, Started on clear liquid diet and tolerating Aebrile, Oxygen saturation 96% on 2L Nasal cannula Last 24H I&O 3480/2600 (+880) CCU Objective - Vital Signs / Intake & Output Vital Signs (Last 4 hours): Vital Signs Temp Pulse Resp BP Pulse Ox 06/14/17 16:00 97.7 F 57 L 17 113/58 L 99 06/14/17 14:00 61 17 141/34 L 97 06/14/17 13:45 97 F L 58 L 18 108/51 L 100 06/14/17 13:30 97 F L 59 L 18 116/61 100 06/14/17 13:08 97 F L 60 15 107/49 L 97 Intake and Output (Last 8hrs): Intake & Output 06/14/17 06/14/17 06/14/17 06:59 14:59 22:59 Intake Total 1160 1228 250 Output Total 850 800 Balance 310 428 250 Intake: IV 1160 1100 250 Intake, Piggyback 128 Output: Urine 850 800 Urine, Voided 850 800 Other: # Voids Urine, Voided 3 - Physical Exam Head: Positive for: Normocephalic Pupils: Positive for: PERRL Extroacular Muscles: Positive for: EOMI Conjunctiva: Positive for: Normal. Negative for: Icteric Mouth: Positive for: Moist Mucous Membranes Neck: Negative for: JVD Respiratory/Chest: Positive for: Decreased Breath Sounds. Negative for: Accessory Muscle Use, Wheezes Cardiovascular: Positive for: Regular Rate and Rhythm, Bradycardic. Negative for: Murmurs, Rub Abdomen: Positive for: Normal Bowel Sounds. Negative for: Tenderness, Distention Lower Extremity: Positive for: Edema (trace), NORMAL PULSES. Negative for: CALF TENDERNESS, Cyanosis Neurological: Positive for: GCS=15, Motor Func Grossly Intact, Normal Sensory Function Skin: Positive for: Warm. Negative for: Rashes - Medications Active Medications: Active Medications Generic Name Dose Route Start Last Admin Trade Name Freq PRN Reason Stop Dose Admin Sodium Chloride 1,000 mls @ 125 mls/hr 06/13/17 06:15 06/14/17 16:06 Sodium Chloride 0.9% IV 06/15/17 06:06 125 mls/hr .Q8H NANCY Administration Morphine Sulfate 1 mg 06/12/17 23:01 06/13/17 23:13 Morphine IVP 1 mg Q4 PRN Administration Pain, moderate (4-7) Ondansetron HCl 4 mg 06/12/17 21:44 Zofran Inj IVP Q6H PRN Nausea/Vomiting Pantoprazole Sodium 40 mg 06/14/17 21:00 Protonix Ec Tab PO Q12 NANCY - Patient Studies Lab Studies: Microbiology Studies 06/13/17 03:36 MRSA Culture (Admit) - Final Naris MRSA NOT DETECTED Lab Studies 06/14/17 06/14/17 06/13/17 Range/Units 04:20 04:20 21:10 WBC 11.8 H 14.7 H (4.8-10.8) K/uL RBC 2.72 L 2.88 L (4.40-5.90) Mil/uL Hgb 8.2 L 8.7 L (12.0-18.0) g/dL Hct 24.8 L 26.0 L (35.0-51.0) % MCV 91.3 90.3 (80.0-94.0) fl MCH 30.3 30.1 (27.0-31.0) pg MCHC 33.1 33.3 (33.0-37.0) g/dL RDW 15.6 H 15.5 H (11.5-14.5) % Plt Count 119 L 127 L (130-400) K/uL Sodium 138 (132-148) mmol/l Potassium 4.3 (3.6-5.0) MMOL/L Chloride 113 H (98-107) mmol/L Carbon Dioxide 20 L (22-30) mmol/L Anion Gap 9 L (10-20) BUN 79 H (9-20) mg/dl Creatinine 1.4 (0.8-1.5) mg/dL Est GFR ( Amer) 58 Est GFR (Non-Af Amer) 48 Random Glucose 97 (75-110) mg/dL Calcium 7.8 L (8.4-10.2) mg/dL Laboratory Results - last 24 hr 06/13/17 06/14/17 06/14/17 21:10 04:20 04:20 WBC 14.7 H 11.8 H RBC 2.88 L 2.72 L Hgb 8.7 L 8.2 L Hct 26.0 L 24.8 L MCV 90.3 91.3 MCH 30.1 30.3 MCHC 33.3 33.1 RDW 15.5 H 15.6 H Plt Count 127 L 119 L Sodium 138 Potassium 4.3 Chloride 113 H Carbon Dioxide 20 L Anion Gap 9 L BUN 79 H Creatinine 1.4 Est GFR ( Amer) 58 Est GFR (Non-Af Amer) 48 Random Glucose 97 Calcium 7.8 L Critical Care Progress Note - Extremities/Vascular Does the Patient have a Central Venous Catheter?: No Does the Patient need a Central Venous Catheter?: No Does the Patient have a Freeman Catheter?: No Does the Patient need a Freeman Catheter?: No - Nutrition Nutrition: Nutrition Category Date Time Status Liquid Diet [DIET] Diets 06/14/17 Dinner Active Assessment/Plan (1) Upper GI bleed Current Visit: Yes Status: Acute Comment: Protonix gtt switched to PO Q 12H Volume resuscitation Serial CBCs q 8 /HR Clear liquid diet, advance as tolerates Holding antihypertensives/Norvasc (2) Anemia Current Visit: Yes Status: Acute Comment: Due to acute Blood loss, All anticoagulation and anti-platelet agents on Hold (3) Atrial flutter Current Visit: No Status: Acute Comment: ASA, Plavix on Hold sdue to GI bledding (4) CVA (cerebral vascular accident) Current Visit: No Status: Acute (5) DVT prophylaxis Current Visit: No Status: Acute Comment: DVT PPx: SCD
[2017-06-14] MEDS: Pantoprazole 40 mg EC Tab PO SCH (21:05)
[2017-06-15] MEDS: Sodium Chloride 0.9% 1,000 ML IV SCH (05:12)
[2017-06-15 05:34] LABS: HEMATOCRIT 25.7 % (35.0-51.0); MEAN CELL VOLUME 92.9 fl (80.0-94.0); MEAN CORPUSCULAR HEMOGLOBIN 30.9 pg (27.0-31.0); MEAN CORPUSCULAR HGB CONC 33.3 g/dL (33.0-37.0); RED CELL DISTRIBUTION WIDTH 15.8 % (11.5-14.5); WHITE BLOOD COUNT 7.4 K/uL (4.8-10.8)
[2017-06-15 05:36] LABS: ALB/GLOB RATIO 0.8 (1.0-2.1); ALKALINE PHOSPHATASE 44 U/L (38-126); ALT/SGPT 51 U/L (21-72); AST/SGOT 23 U/L (17-59); BILIRUBIN,TOTAL 1.3 mg/dl (0.2-1.3); BLOOD UREA NITROGEN 42 mg/dl (9-20); CALCIUM 7.8 mg/dL (8.4-10.2); CARBON DIOXIDE 19 mmol/L (22-30); CHLORIDE 113 mmol/L (98-107); GFR AFRICAN-AMERICAN > 60; GLUCOSE,RANDOM 99 mg/dL (75-110); POTASSIUM 4.2 MMOL/L (3.6-5.0); SODIUM 138 mmol/l (132-148); TOTAL PROTEIN 5.3 G/DL (6.3-8.2)
[2017-06-15] MEDS: Pantoprazole 40 mg EC Tab PO SCH ×2 (08:24→21:13)
--- NOTE | 2017-06-15 08:56 | CP.PCM.PN ---
Subjective - Date & Time of Evaluation Date of Evaluation: 06/15/17 Time of Evaluation: 08:54 - Subjective Subjective: doign well, no complaints. no f/c, n/v/d. no abd pain. hgb stable bun trending down Objective - Vital Signs/Intake and Output Vital Signs (last 24 hours): Temp Pulse Resp BP Pulse Ox 98.8 F 71 20 120/69 97 06/15/17 08:00 06/15/17 08:00 06/15/17 08:00 06/15/17 08:00 06/15/17 08:00 Intake and Output: 06/15/17 06/15/17 06:59 18:59 Intake Total 1495 250 Output Total 880 Balance 615 250 - Medications Medications: Current Medications Morphine Sulfate (Morphine) 1 mg IVP Q4 PRN PRN Reason: Pain, moderate (4-7) Last Admin: 06/13/17 23:13 Dose: 1 mg Ondansetron HCl (Zofran Inj) 4 mg IVP Q6H PRN PRN Reason: Nausea/Vomiting Pantoprazole Sodium (Protonix Ec Tab) 40 mg PO Q12 NANCY Last Admin: 06/15/17 08:24 Dose: 40 mg - Labs Labs: 06/15/17 04:35 06/15/17 04:35 PT 11.6 Seconds (9.8-13.1) 06/12/17 20:25 INR 1.1 (0.9-1.2) 06/12/17 20:25 APTT 21.6 Seconds (25.6-37.1) L 06/12/17 20:25 - Constitutional Appears: Well, Non-toxic, No Acute Distress - Head Exam Head Exam: ATRAUMATIC, NORMAL INSPECTION, NORMOCEPHALIC - Eye Exam Eye Exam: EOMI, Normal appearance, PERRL Pupil Exam: NORMAL ACCOMODATION, PERRL - ENT Exam ENT Exam: Mucous Membranes Moist, Normal Exam - Neck Exam Neck Exam: Full ROM, Normal Inspection. absent: Lymphadenopathy - Respiratory Exam Respiratory Exam: Clear to Ausculation Bilateral, NORMAL BREATHING PATTERN - Cardiovascular Exam Cardiovascular Exam: REGULAR RHYTHM, RRR, +S1, +S2. absent: Murmur - GI/Abdominal Exam GI & Abdominal Exam: Soft, Normal Bowel Sounds. absent: Tenderness Additional comments: abd hernia remains present - Extremities Exam Extremities Exam: Full ROM, Normal Capillary Refill, Normal Inspection. absent : Joint Swelling, Pedal Edema - Back Exam Back Exam: NORMAL INSPECTION - Neurological Exam Neurological Exam: Alert, Awake, CN II-XII Intact, Normal Gait, Oriented x3 - Psychiatric Exam Psychiatric exam: Normal Affect, Normal Mood - Skin Skin Exam: Dry, Intact, Normal Color, Warm Assessment and Plan (1) Anemia Status: Acute (2) GIB (gastrointestinal bleeding) Status: Acute (3) DVT prophylaxis Status: Acute (4) Dehydration Status: Acute - Assessment and Plan (Free Text) Assessment: (1) Anemia Assessment and Plan: 2 units prbc, trend h/h Status: Acute (2) GIB (gastrointestinal bleeding) Assessment and Plan: protonix gtt gi transfusion support s/p egd Status: Acute (3) DVT prophylaxis Assessment and Plan: scd and ae hose no lovenox/plavix/asa r/t gi bleed Status: Acute (4) Dehydration Assessment and Plan: ivf r/t gi bleed trending cmp Status: Acute downgrade icu today ?? dc tonorrow
--- NOTE | 2017-06-16 08:03 | CP.PCM.PN ---
Subjective - Date & Time of Evaluation Date of Evaluation: 06/16/17 Time of Evaluation: 08:01 - Subjective Subjective: doing well, no f/c, n/v/d. no abd pain. jitendra liquids. pending labs and if jitendra po bland will dc to [facility] Objective - Vital Signs/Intake and Output Vital Signs (last 24 hours): Temp Pulse Resp BP Pulse Ox 98.1 F 58 L 18 136/73 97 06/16/17 07:25 06/16/17 07:25 06/16/17 07:25 06/16/17 07:25 06/16/17 07:25 - Medications Medications: Current Medications Ferrous Sulfate (Feosol) 325 mg PO BID [facility] Last Admin: 06/15/17 16:28 Dose: 325 mg Ondansetron HCl (Zofran Inj) 4 mg IVP Q6H PRN PRN Reason: Nausea/Vomiting Pantoprazole Sodium (Protonix Ec Tab) 40 mg PO Q12 [facility] Last Admin: 06/15/17 21:13 Dose: 40 mg - Labs Labs: 06/15/17 04:35 06/15/17 04:35 PT 11.6 Seconds (9.8-13.1) 06/12/17 20:25 INR 1.1 (0.9-1.2) 06/12/17 20:25 APTT 21.6 Seconds (25.6-37.1) L 06/12/17 20:25 - Constitutional Appears: Well, Non-toxic, No Acute Distress - Head Exam Head Exam: ATRAUMATIC, NORMAL INSPECTION, NORMOCEPHALIC - Eye Exam Eye Exam: EOMI, Normal appearance, PERRL Pupil Exam: NORMAL ACCOMODATION, PERRL - ENT Exam ENT Exam: Mucous Membranes Moist, Normal Exam - Neck Exam Neck Exam: Full ROM, Normal Inspection. absent: Lymphadenopathy - Respiratory Exam Respiratory Exam: Clear to Ausculation Bilateral, NORMAL BREATHING PATTERN - Cardiovascular Exam Cardiovascular Exam: REGULAR RHYTHM, RRR, +S1, +S2. absent: Murmur - GI/Abdominal Exam GI & Abdominal Exam: Soft, Normal Bowel Sounds. absent: Tenderness Additional comments: abd hernia remains - Extremities Exam Extremities Exam: Full ROM, Normal Capillary Refill, Normal Inspection. absent : Joint Swelling, Pedal Edema - Back Exam Back Exam: NORMAL INSPECTION - Neurological Exam Neurological Exam: Alert, Awake, CN II-XII Intact, Normal Gait, Oriented x3 - Psychiatric Exam Psychiatric exam: Normal Affect, Normal Mood - Skin Skin Exam: Dry, Intact, Normal Color, Warm Assessment and Plan (1) Anemia Status: Acute (2) GIB (gastrointestinal bleeding) Status: Acute (3) DVT prophylaxis Status: Acute (4) Dehydration Status: Acute - Assessment and Plan (Free Text) Assessment: (1) Anemia Assessment and Plan: 2 units prbc, trend h/h Status: Acute (2) GIB (gastrointestinal bleeding) Assessment and Plan: protonix gtt gi transfusion support-hgb has been stable s/p egd Status: Acute (3) DVT prophylaxis Assessment and Plan: scd and ae hose no lovenox/plavix/asa r/t gi bleed Status: Acute (4) Dehydration Assessment and Plan: ivf r/t gi bleed trending cmp-improving Status: Acute
[2017-06-16 08:27] LABS: BASO % 0.3 % (0.0-2.0); EOS # 0.1 K/uL (0.0-0.7); EOS % 1.2 % (0.0-4.0); HEMATOCRIT 29.4 % (35.0-51.0); LYMPH # 0.7 K/uL (1.0-4.3); MEAN CELL VOLUME 92.8 fl (80.0-94.0); MEAN CORPUSCULAR HEMOGLOBIN 30.6 pg (27.0-31.0); MEAN PLATELET VOLUME 9.7 fl (7.2-11.7); MONO # 0.8 K/uL (0.0-0.8); MONO % 11.1 % (0.0-10.0); NEUT # 5.2 K/uL (1.8-7.0); NEUT % 76.4 % (50.0-75.0); RED CELL DISTRIBUTION WIDTH 15.9 % (11.5-14.5); WHITE BLOOD COUNT 6.8 K/uL (4.8-10.8)
[2017-06-16 08:46] LABS: ALKALINE PHOSPHATASE 52 U/L (38-126); ALT/SGPT 45 U/L (21-72); AST/SGOT 24 U/L (17-59); BILIRUBIN,TOTAL 1.4 mg/dl (0.2-1.3); BLOOD UREA NITROGEN 24 mg/dl (9-20); CALCIUM 8.2 mg/dL (8.4-10.2); CARBON DIOXIDE 20 mmol/L (22-30); CHLORIDE 110 mmol/L (98-107); GFR AFRICAN-AMERICAN > 60; GLUCOSE,RANDOM 109 mg/dL (75-110); POTASSIUM 4.6 MMOL/L (3.6-5.0); SODIUM 136 mmol/l (132-148); TOTAL PROTEIN 6.1 G/DL (6.3-8.2)
[2017-06-16 08:50] LABS: ALB/GLOB RATIO 0.8 (1.0-2.1)
[2017-06-16] MEDS: Pantoprazole 40 mg EC Tab PO SCH (08:55)
[2017-06-16 16:08] VITALS: BP 102/52; PULSE 65; RESP 20; TEMP 98.6; O2SAT 98
--- NOTE | 2017-06-16 17:37 | CP.PCM.PN ---
Subjective - Date & Time of Evaluation Date of Evaluation: 06/16/17 Time of Evaluation: 17:30 - Subjective Subjective: doing well Objective - Vital Signs/Intake and Output Vital Signs (last 24 hours): Temp Pulse Resp BP Pulse Ox 98.6 F 65 20 102/52 L 98 06/16/17 16:07 06/16/17 16:07 06/16/17 16:07 06/16/17 16:07 06/16/17 16:07 - Medications Medications: Current Medications Acetaminophen (Tylenol 325mg Tab) 650 mg PO Q6 PRN PRN Reason: Pain, Mild (1-3) Last Admin: 06/16/17 17:05 Dose: 650 mg Ferrous Sulfate (Feosol) 325 mg PO BID [facility] Last Admin: 06/16/17 17:07 Dose: 325 mg Ondansetron HCl (Zofran Inj) 4 mg IVP Q6H PRN PRN Reason: Nausea/Vomiting Pantoprazole Sodium (Protonix Ec Tab) 40 mg PO Q12 [facility] Last Admin: 06/16/17 08:55 Dose: 40 mg - Labs Labs: 06/16/17 07:45 06/16/17 07:45 PT 11.6 Seconds (9.8-13.1) 06/12/17 20:25 INR 1.1 (0.9-1.2) 06/12/17 20:25 APTT 21.6 Seconds (25.6-37.1) L 06/12/17 20:25 - Head Exam Head Exam: NORMAL INSPECTION - Cardiovascular Exam Cardiovascular Exam: REGULAR RHYTHM - GI/Abdominal Exam GI & Abdominal Exam: Soft, Normal Bowel Sounds Assessment and Plan - Assessment and Plan (Free Text) Assessment: 87 yo male with GIB hgb stable dc planning ppi q12 bx results in office
== END 2017-06-16 21:00 | DRG 378 ==
LOC: H.ER 18:35 → H.EROBSV 19:00 → OBSVTOIN 21:14 → H.ICU/CCU 21:24 → H.MEDSURG1 06-15 12:09
PROVIDERS: ADMIT Family Medicine; ATTEND Family Medicine
PROC: 05HM33Z Insertion of Infusion Device into Right Internal Jugular Vein, Percutaneous Approach (ICD-10-PCS; principal; 2017-06-12)
PROC: 30233N1 Transfusion of Nonautologous Red Blood Cells into Peripheral Vein, Percutaneous Approach (ICD-10-PCS; 2017-06-12)
PROC: 0DB98ZX Excision of Duodenum, Via Natural or Artificial Opening Endoscopic, Diagnostic (ICD-10-PCS; 2017-06-14)
PROC: 0DB68ZX Excision of Stomach, Via Natural or Artificial Opening Endoscopic, Diagnostic (ICD-10-PCS; 2017-06-14)
DX: K92.0 Hematemesis (principal); I48.92 Unspecified atrial flutter; I48.91 Unspecified atrial fibrillation; E86.0 Dehydration; R55 Syncope and collapse; I10 Essential (primary) hypertension; E78.5 Hyperlipidemia, unspecified; D62 Acute posthemorrhagic anemia; E86.1 Hypovolemia; R79.89 Other specified abnormal findings of blood chemistry; Z86.73 Personal history of transient ischemic attack (TIA), and cerebral infarction without residual deficits; E78.00 Pure hypercholesterolemia, unspecified; Z79.01 Long term (current) use of anticoagulants; K43.9 Ventral hernia without obstruction or gangrene; K26.9 Duodenal ulcer, unspecified as acute or chronic, without hemorrhage or perforation; K44.9 Diaphragmatic hernia without obstruction or gangrene; K20.8 Other esophagitis; K29.70 Gastritis, unspecified, without bleeding